=== PATIENT | female | born 1940 | race Caucasian/White ===

== ENCOUNTER 2018-02-21 22:02 | Emergency (ER) | payer OTHER ==
--- NOTE | 2018-02-21 23:57 | ER ---
Nurse's Notes [facility] Name: Arlen Veliz Age: 77 yrs Sex: Female : 1940 Arrival Date: 02/21/2018 Time: 22:06 Bed 7 Private MD: Quang Stephens H Diagnosis: Fracture distal right fibula. Contusion head. S/P Fall Presentation: 02/21 22:18 Presenting complaint: Patient states: Pt reports around 2100 she tripped over some ea boots when she got home from work and hit the outer side of her right ankle, pt reports when she got up she hit her head on a cabinet, reports no LOC. Transition of care: patient was not received from another setting of care. Onset of symptoms was February 21, 2018. Risk Assessment: Do you want to hurt yourself or someone else? Patient reports no desire to harm self or others. Initial Sepsis Screen: Does the patient meet any 2 criteria? No. Patient's initial sepsis screen is negative. Does the patient have a suspected source of infection? No. Patient's initial sepsis screen is negative. Care prior to arrival: pt reports icing her ankle. 22:18 Method Of Arrival: Wheelchair ea 22:18 Acuity: SUSANA 3 ea Triage Assessment: 22:23 General: Appears uncomfortable, Behavior is calm, cooperative, appropriate for age. ea Pain: Complains of pain in right ankle Pain currently is 7 out of 10 on a pain scale. Quality of pain is described as aching. Neuro: Level of Consciousness is awake, alert, obeys commands, Oriented to person, place, time, situation. Cardiovascular: Patient's skin is warm and dry. Respiratory: Airway is patent Respiratory effort is even, unlabored, Respiratory pattern is regular, symmetrical. Derm: Skin is pink, warm \T\ dry. Musculoskeletal: Swelling present in right ankle Reports pain in right ankle. Injury Description: Bruise sustained to right ankle bruising and swelling to right ankle. Historical: - Allergies: 22:29 PENICILLINS; ea - Home Meds: 22:29 carvedilol 6.25 mg oral tab 1 tab 2 times per day [Active]; aspirin 81 mg Oral chew 1 ea tab once daily [Active]; Vitamin D Oral [Active]; Vitamin B-12 Oral [Active]; - PMHx: 22:29 COLON CA; ea - PSHx: 22:29 Tonsillectomy; CATARACTS; COLON RESECTION; ea - Immunization history:: Adult Immunizations up to date. - Social history:: Smoking status: Patient/guardian denies using tobacco. - Ebola Screening: : No symptoms or risks identified at this time. Screenin:23 Abuse screen: Denies threats or abuse. Nutritional screening: No deficits noted. ea Tuberculosis screening: No symptoms or risk factors identified. Fall Risk None identified. Assessment: 22:34 Reassessment: see triage assessment. ea 23:25 Reassessment: Patient and/or family updated on plan of care and expected duration. Pain ea level reassessed. Patient is alert, oriented x 3, equal unlabored respirations, skin warm/dry/pink. Provider at bedside updating pt on plan of care. 02/22 00:05 Reassessment: Patient and/or family updated on plan of care and expected duration. Pain ea level reassessed. Patient is alert, oriented x 3, equal unlabored respirations, skin warm/dry/pink. Discharge instruction given to patient, verbalized the understanding of instruction. Vital Signs: 02/21 22:22 BP 215 / 90; Pulse 67; Resp 16; Temp 97.4; Pulse Ox 97% ; Weight 70.76 kg; Height 5 ft. ea 6 in. (167.64 cm); Pain 7/10; 22:35 BP 186 / 90; Pulse 66; Resp 16; Pulse Ox 99% on R/A; ea 22:40 BP 166 / 79; Pulse 62; Resp 18; Pulse Ox 98% ; ea 23:55 BP 180 / 78; Pulse 60; Resp 18; Pulse Ox 99% on R/A; ea 22:22 Body Mass Index 25.18 (70.76 kg, 167.64 cm) ea ED Course: 22:06 Patient arrived in ED. es 22:06 Quang Stephens MD is Private Physician. es 22:10 Oliva Allen, ROMEO is Primary Nurse. ea 22:21 Triage completed. ea 22:23 Jerrell Ferrer MD is Attending Physician. pkl 22:23 Patient has correct armband on for positive identification. Bed in low position. Call ea light in reach. Side rails up X 1. 22:23 Arm band placed on right wrist. Patient placed in an exam room, on a stretcher, on ea pulse oximetry. 23:[address] via wheelchair. kw1 23:21 CT Head Brain wo Cont In Process Unspecified. EDMS 23:22 CT completed. Patient tolerated procedure well. Patient moved back from CT. kw1 23:23 X-ray completed. Portable x-ray completed in exam room. Patient tolerated procedure sg4 well. 23:30 Ankle Right 3 View XRAY In Process Unspecified. EDMS 23:48 Orthoglass splint: Posterior short lleg splint applied on right leg. ag4 02/22 00:04 No provider procedures requiring assistance completed. Patient did not have IV access ea during this emergency room visit. Administered Medications: 00:02 Drug: UltRAM 50 mg Route: PO; ea 00:04 Follow up: Response: Medication administered at discharge. ea Outcome: 02/21 23:57 Discharge ordered by . zandra 02/22 00:06 Condition: improved ea Discharge instructions given to patient, Instructed on discharge instructions, follow up and referral plans. medication usage, Demonstrated understanding of instructions, follow-up care, medications, Prescriptions given X 1. 00:07 Discharged to home via wheelchair, with friend. ea 00:08 Patient left the ED. ea Signatures: Dispatcher [employer] Jerrell Connolly MD MD pkl Salyer, Edna es Antunez, Elena, RN RN Mis Waldron kw1 Nikia Hercules sg4 Emory Virgen ag4 Corrections: (The following items were deleted from the chart) 02/21 23:32 23:14 Reassessment: Patient and/or family updated on plan of care and expected ea duration. Pain level reassessed. Patient is alert, oriented x 3, equal unlabored respirations, skin warm/dry/pink. ea
--- NOTE | 2018-02-21 23:57 | EDPHYS ---
Physician Documentation [facility] Name: Arlen Veliz Age: 77 yrs Sex: Female : 1940 Arrival Date: 02/21/2018 Time: 22:06 Bed 7 Private MD: Quang Stephens H ED Physician Jerrell Ferrer HPI: 02/21 23:36 This 77 yrs old Female presents to ER via Wheelchair with complaints of Ankle pkl Injury. 23:37 Details of fall: The patient fell from an upright position, while walking. Onset: The pkl symptoms/episode began/occurred just prior to arrival. Associated injuries: The patient sustained injury to the head, contusion, right ankle, painful injury, swelling. Historical: - Allergies: 22:29 PENICILLINS; ea - Home Meds: 22:29 carvedilol 6.25 mg oral tab 1 tab 2 times per day [Active]; aspirin 81 mg Oral chew 1 ea tab once daily [Active]; Vitamin D Oral [Active]; Vitamin B-12 Oral [Active]; - PMHx: 22:29 COLON CA; ea - PSHx: 22:29 Tonsillectomy; CATARACTS; COLON RESECTION; ea - Immunization history:: Adult Immunizations up to date. - Social history:: Smoking status: Patient/guardian denies using tobacco. - Ebola Screening: : No symptoms or risks identified at this time. ROS: 23:37 Eyes: Negative for injury, pain, redness, and discharge, ENT: Negative for injury, pkl pain, and discharge, Neck: Negative for injury, pain, and swelling, Cardiovascular: Negative for chest pain, palpitations, and edema, Respiratory: Negative for shortness of breath, cough, wheezing, and pleuritic chest pain, Abdomen/GI: Negative for abdominal pain, nausea, vomiting, diarrhea, and constipation, Back: Negative for injury and pain, : Negative for injury, bleeding, discharge, and swelling, Skin: Negative for injury, rash, and discoloration, Neuro: Negative for headache, weakness, numbness, tingling, and seizure. 23:37 MS/extremity: Positive for pain, swelling, tenderness, of the right ankle. Exam: 23:37 Head/Face: Normocephalic, atraumatic. Eyes: Pupils equal round and reactive to light, pkl extra-ocular motions intact. Lids and lashes normal. Conjunctiva and sclera are non-icteric and not injected. Cornea within normal limits. Periorbital areas with no swelling, redness, or edema. ENT: Nares patent. No nasal discharge, no septal abnormalities noted. Tympanic membranes are normal and external auditory canals are clear. Oropharynx with no redness, swelling, or masses, exudates, or evidence of obstruction, uvula midline. Mucous membranes moist. Neck: Trachea midline, no thyromegaly or masses palpated, and no cervical lymphadenopathy. Supple, full range of motion without nuchal rigidity, or vertebral point tenderness. No Meningismus. Chest/axilla: Normal chest wall appearance and motion. Nontender with no deformity. No lesions are appreciated. Cardiovascular: Regular rate and rhythm with a normal S1 and S2. No gallops, murmurs, or rubs. Normal PMI, no JVD. No pulse deficits. Respiratory: Lungs have equal breath sounds bilaterally, clear to auscultation and percussion. No rales, rhonchi or wheezes noted. No increased work of breathing, no retractions or nasal flaring. Abdomen/GI: Soft, non-tender, with normal bowel sounds. No distension or tympany. No guarding or rebound. No evidence of tenderness throughout. Back: No spinal tenderness. No costovertebral tenderness. Full range of motion. Skin: Warm, dry with normal turgor. Normal color with no rashes, no lesions, and no evidence of cellulitis. Neuro: Awake and alert, GCS 15, oriented to person, place, time, and situation. Cranial nerves II-XII grossly intact. Motor strength 5/5 in all extremities. Sensory grossly intact. Cerebellar exam normal. Normal gait. 23:37 Musculoskeletal/extremity: Extremities: grossly normal except: noted in the right ankle: pain, swelling, tenderness. Vital Signs: 22:22 BP 215 / 90; Pulse 67; Resp 16; Temp 97.4; Pulse Ox 97% ; Weight 70.76 kg; Height 5 ft. ea 6 in. (167.64 cm); Pain 7/10; 22:35 BP 186 / 90; Pulse 66; Resp 16; Pulse Ox 99% on R/A; ea 22:40 BP 166 / 79; Pulse 62; Resp 18; Pulse Ox 98% ; ea 23:55 BP 180 / 78; Pulse 60; Resp 18; Pulse Ox 99% on R/A; ea 22:22 Body Mass Index 25.18 (70.76 kg, 167.64 cm) ea MDM: 22:23 Patient medically screened. pkl 23:51 Data reviewed: vital signs, nurses notes, radiologic studies, CT scan, plain films. ED pkl course: Discussed X'rays and CT Scan results with patient. Advised to use walker and follow up with her Orthopedist in [place] in 2 to 3 days. Patient understood instructions. 02/21 22:29 Order name: CT Head Brain wo Cont pkl 02/21 22:29 Order name: Ankle Right 3 View XRAY pkl 02/21 23:31 Order name: Splint Leg: Short Leg; Complete Time: 23:46 pkl Administered Medications: 02/22 00:02 Drug: UltRAM 50 mg Route: PO; ea 00:04 Follow up: Response: Medication administered at discharge. ea Disposition: 02/21/18 23:57 Discharged to Home. Impression: Fracture distal right fibula. Contusion head. S/P Fall. - Condition is Stable. - Prescriptions for Ultram 50 mg Oral Tablet - take 1 tablet by ORAL route every 8 hours As needed; 30 tablet. - Medication Reconciliation Form, Thank You Letter, Antibiotic Education, Prescription Opioid Use form. - Follow up: Private Physician; When: 2 - 3 days; Reason: Re-evaluation by your physician. - Problem is new. - Symptoms have improved. Signatures: Dispatcher [employer] EDMS Jerrell Ferrer MD MD pkl Antunez, Elena, RN RN oskar Corrections: (The following items were deleted from the chart) 00:08 02/21 23:57 02/21/2018 23:57 Discharged to Home. Impression: Fracture distal right ea fibula. Contusion head. S/P Fall. Condition is Stable. Forms are Medication Reconciliation Form, Thank You Letter, Antibiotic Education, Prescription Opioid Use. Follow up: Private Physician; When: 2 - 3 days; Reason: Re-evaluation by your physician. Problem is new. Symptoms have improved. pkl
[2018-02-22] MEDS ORDERED: TRAMADOL HCL 50 MG TAB ONE (00:09)
--- NOTE | 2018-02-22 11:35 | RAD REPORT ---
EXAM DESCRIPTION: RAD - Ankle Right 3 View - 02/21/2018 11:30 pm CLINICAL HISTORY: fall;Pain COMPARISON: No comparisons FINDINGS: Prominent lateral soft tissue swelling is present. Subtle lucency in the very distal fibul a may represent a minimal avulsion fracture.
--- NOTE | 2018-02-22 11:40 | RAD REPORT ---
EXAM DESCRIPTION: CT - Head Brain Wo Cont - 02/22/2018 5:56 am CLINICAL HISTORY: fall Head injury COMPARISON: No comparisons TECHNIQUE: All CT scans are performed using dose optimization technique as appropriate and may inclu de automated exposure control or mA/KV adjustment according to patient size. FINDINGS: No intracranial hemorrhage, hydrocephalus or extra-axial fluid collection.No areas of brai n edema or evidence of midline shift. The paranasal sinuses and mastoids are clear. The calvarium is intact. IMPRESSION: No acute intracranial abnormality.
== END 2018-02-22 00:08 | disposition home or self-care (01) ==
LOC: ER 22:02
PROC: 2W3QX1Z Immobilization of Right Lower Leg using Splint (ICD-10-PCS; principal; 2018-02-22)
DX: S82.831A Other fracture of upper and lower end of right fibula, initial encounter for closed fracture (principal); S00.93XA Contusion of unspecified part of head, initial encounter; W01.10XA Fall on same level from slipping, tripping and stumbling with subsequent striking against unspecified object, initial encounter; Y92.009 Unspecified place in unspecified non-institutional (private) residence as the place of occurrence of the external cause
CPT/HCPCS: 70450; 99284

== ENCOUNTER 2018-05-02 12:42 | Emergency (ER) | payer OTHER ==
[2018-05-02 13:55] LABS: Absolute Lymphocytes (CBC) 1.2 K/uL (0.7-4.9); Absolute Monocytes 0.7 K/uL (0.1-1.3); Absolute Neutrophil 4.5 K/uL (1.8-8.0); Eosinophils % 1.7 % (0-4.4); Hematocrit 43.5 % (36.0-45.0); Lymphocytes % 18.6 % (15.3-44.8); MPV 9.9 fL (7.6-11.3); Monocytes % 9.9 % (3.3-12.3); RBC Red Blood Cell Count 4.82 M/uL (3.86-4.86)
[2018-05-02 14:08] LABS: ALT/SGPT 17 U/L (12-78); AST/SGOT 15 U/L (15-37); Albumin 3.9 g/dL (3.4-5.0); Alkaline Phosphatase 50 U/L (45-117); BUN Blood Urea Nitrogen 11 mg/dL (7-18); Bicarbonate 28 mmol/L (21-32); Bilirubin Total 0.7 mg/dL (0.2-1.0); Glucose Level 126 mg/dL (74-106); Potassium 4.1 mmol/L (3.5-5.1); Sodium Level 139 mmol/L (136-145); Troponin (Emerg Dept Use Only) < 0.02 ng/mL (0.0-0.045)
--- NOTE | 2018-05-02 14:50 | EDPHYS ---
Physician Documentation [facility] Name: Arlen Veliz Age: 77 yrs Sex: Female : 1940 Arrival Date: 05/02/2018 Time: 12:45 Bed 23 Private MD: ED Physician Huan Narvaez HPI: 05/02 13:18 This 77 yrs old Female presents to ER via Ambulatory with complaints of High jmm Blood Pressure. 13:18 The patient has elevated blood pressure and discovered this at home. Onset: The jmm symptoms/episode began/occurred gradually, today. Associated signs and symptoms: Pertinent positives: headache, Pertinent negatives: chest pain, lightheadedness, visual changes, vomiting, weakness. This is a 77 year old female with a history of htn, colon cancer that presents to the ED with elevated blood pressure and headache beginning earlier today. Denies weakness, denies chest pain, denies urinary symptoms. Patient states having similar headaches with elevated blood pressure. Patient states taking her carvedilol along with another half dose this morning with no relief. Systolic was 224 at home. . Historical: - Allergies: 12:54 PENICILLINS; sg - Home Meds: 12:57 carvedilol 6.25 mg Oral tab 1 tab 2 times per day [Active]; sertraline 25 mg oral tab 1 la1 tab once daily [Active]; pravastatin 40 mg oral tab 1 tab once daily [Active]; Vitamin D Oral [Active]; - PMHx: 12:54 COLON CA; sg - PSHx: 12:54 Tonsillectomy; CATARACTS; COLON RESECTION; sg - Immunization history:: Adult Immunizations up to date. - Social history:: Smoking status: Patient/guardian denies using tobacco. - Ebola Screening: : Patient negative for fever greater than or equal to 101.5 degrees Fahrenheit, and additional compatible Ebola Virus Disease symptoms Patient denies exposure to infectious person Patient denies travel to an Ebola-affected area in the 21 days before illness onset No symptoms or risks identified at this time. ROS: 13:18 Constitutional: Negative for fever, chills, and weight loss, Cardiovascular: Negative jmm for chest pain, palpitations, and edema, Respiratory: Negative for shortness of breath, cough, wheezing, and pleuritic chest pain. 13:18 Neuro: Positive for headache, Negative for weakness. 13:18 All other systems are negative. Exam: 13:18 Constitutional: This is a well developed, well nourished patient who is awake, alert, jmm and in no acute distress. Head/Face: atraumatic. Eyes: EOMI, no conjunctival erythema appreciated ENT: Moist Mucus Membranes Neck: Trachea midline, Supple Chest/axilla: Normal chest wall appearance and motion. Cardiovascular: Regular rate and rhythm. No edema appreciated Respiratory: Normal respirations, no respiratory distress appreciated Abdomen/GI: Non distended, soft Back: Normal ROM Skin: General appearance color normal MS/ Extremity: Moves all extremities, no obvious deformities appreciated, no edema noted to the lower extremities 13:18 Neuro: Orientation: is normal, Mentation: is normal, Memory: is normal, Cerebellar function: normal finger to nose testing, Motor: is normal. 13:18 Psych: Behavior/mood is pleasant, cooperative. Vital Signs: 12:50 BP 204 / 108; Pulse 60; Resp 18; Temp 97.8; Pulse Ox 96% ; Weight 63.5 kg; Height 5 ft. la1 6 in. (167.64 cm); 13:09 BP 182 / 89; la1 15:06 BP 190 / 80; Pulse 61; Resp 18; Pulse Ox 98% on R/A; la1 12:50 Body Mass Index 22.60 (63.50 kg, 167.64 cm) la1 MDM: 13:08 Patient medically screened. [facility] 14:46 Data reviewed: vital signs, nurses notes. Counseling: I had a detailed discussion with [facility] the patient and/or guardian regarding: the historical points, exam findings, and any diagnostic results supporting the discharge/admit diagnosis, lab results, the need for outpatient follow up, to return to the emergency department if symptoms worsen or persist or if there are any questions or concerns that arise at home. ED course: Patient has no focal neuro deficits. Patient is alert and non toxic in appearance. Labs unremarkable. Patient given return precautions. Patient understood and agrees with the plan of care. . 05/02 13:09 Order name: CBC with Diff; Complete Time: 14:17 [facility] 05/02 13:09 Order name: CMP; Complete Time: 14:17 [facility] 05/02 13:09 Order name: Urine Dipstick-Ancillary (obtain specimen); Complete Time: 14:54 [facility] 05/02 13:09 Order name: Troponin (emerg Dept Use Only); Complete Time: 14:17 [facility] 05/02 14:38 Order name: Urine Dipstick--Ancillary (enter results) eb 05/02 14:54 Order name: Urine Culture la1 05/02 13:09 Order name: EKG - Nurse/Tech; Complete Time: 13:51 [facility] 05/02 13:09 Order name: Saline Lock; Complete Time: 13:51 [facility] Administered Medications: No medications were administered Disposition: 05/03 07:00 Co-signature as Attending Physician, Huan Narvaez MD. rn Disposition: 05/02/18 14:49 Discharged to Home. Impression: Elevated Blood Pressure, Urinary tract infection, site not specified. - Condition is Stable. - Discharge Instructions: Hypertension, Urinary Tract Infection, Adult. - Prescriptions for Macrobid 100 mg Oral Capsule - take 1 capsule by ORAL route every 12 hours for 7 days; 14 capsule. - Medication Reconciliation Form, Thank You Letter, Antibiotic Education, Prescription Opioid Use form. - Follow up: Private Physician; When: 2 - 3 days; Reason: Recheck today's complaints, Continuance of care, Re-evaluation by your physician. Signatures: Dispatcher [employer] EDDwain Garcia RN RN sg Mickail, Joel, PA PA [facility] Huan Narvaez MD MD rn Attema, Lee, RN RN la1 Corrections: (The following items were deleted from the chart) 05/02 15:07 14:49 05/02/2018 14:49 Discharged to Home. Impression: Elevated Blood Pressure; Urinary la1 tract infection, site not specified. Condition is Stable. Forms are Medication Reconciliation Form, Thank You Letter, Antibiotic Education, Prescription Opioid Use. Follow up: Private Physician; When: 2 - 3 days; Reason: Recheck today's complaints, Continuance of care, Re-evaluation by your physician. [facility]
--- NOTE | 2018-05-02 14:50 | ER ---
Nurse's Notes [facility] Name: Arlen Veliz Age: 77 yrs Sex: Female : 1940 Arrival Date: 05/02/2018 Time: 12:45 Bed 23 Private MD: Diagnosis: Elevated Blood Pressure;Urinary tract infection, site not specified Presentation: 05/02 12:53 Presenting complaint: Patient states: Headache starting this morning, described as sg pounding and throbbing, reports worrying a lot lately because of work situations...etc. Pressures at home have been ranging from 180's/90's to 200's/100's. Transition of care: patient was not received from another setting of care. Onset of symptoms was May 02, 2018. Risk Assessment: Do you want to hurt yourself or someone else? Patient reports no desire to harm self or others. Initial Sepsis Screen: Does the patient meet any 2 criteria? No. Patient's initial sepsis screen is negative. Does the patient have a suspected source of infection? No. Patient's initial sepsis screen is negative. Care prior to arrival: None. 12:53 Method Of Arrival: Ambulatory sg 12:53 Acuity: SUSANA 3 sg Historical: - Allergies: 12:54 PENICILLINS; sg - Home Meds: 12:57 carvedilol 6.25 mg Oral tab 1 tab 2 times per day [Active]; sertraline 25 mg oral tab 1 la1 tab once daily [Active]; pravastatin 40 mg oral tab 1 tab once daily [Active]; Vitamin D Oral [Active]; - PMHx: 12:54 COLON CA; sg - PSHx: 12:54 Tonsillectomy; CATARACTS; COLON RESECTION; sg - Immunization history:: Adult Immunizations up to date. - Social history:: Smoking status: Patient/guardian denies using tobacco. - Ebola Screening: : Patient negative for fever greater than or equal to 101.5 degrees Fahrenheit, and additional compatible Ebola Virus Disease symptoms Patient denies exposure to infectious person Patient denies travel to an Ebola-affected area in the 21 days before illness onset No symptoms or risks identified at this time. Screenin:14 Abuse screen: Denies threats or abuse. Nutritional screening: No deficits noted. la1 Tuberculosis screening: No symptoms or risk factors identified. Fall Risk None identified. Assessment: 13:13 General: Appears in no apparent distress. Behavior is calm, cooperative. Pain: la1 Complains of pain in pt reports generalized headache. Neuro: Level of Consciousness is awake, alert, obeys commands, Oriented to person, place, time, situation, Solder Making Laborer are equal bilaterally Moves all extremities. Full function Gait is steady, Speech is normal, Facial symmetry appears normal, Pupils are PERRLA. Cardiovascular: Capillary refill < 3 seconds Patient's skin is warm and dry. Respiratory: Airway is patent Respiratory effort is even, unlabored, Respiratory pattern is regular, symmetrical, Breath sounds are clear bilaterally. GI: No signs and/or symptoms were reported involving the gastrointestinal system. : No signs and/or symptoms were reported regarding the genitourinary system. 15:07 Reassessment: Patient appears in no apparent distress at this time. No changes from la1 previously documented assessment. Patient and/or family updated on plan of care and expected duration. Pain level reassessed. Patient is alert, oriented x 3, equal unlabored respirations, skin warm/dry/pink. Vital Signs: 12:50 BP 204 / 108; Pulse 60; Resp 18; Temp 97.8; Pulse Ox 96% ; Weight 63.5 kg; Height 5 ft. la1 6 in. (167.64 cm); 13:09 BP 182 / 89; la1 15:06 BP 190 / 80; Pulse 61; Resp 18; Pulse Ox 98% on R/A; la1 12:50 Body Mass Index 22.60 (63.50 kg, 167.64 cm) la1 ED Course: 12:45 Patient arrived in ED. rg4 12:49 Madi Vicente, ROMEO is Primary Nurse. la1 12:52 Leonidas Arreguin PA is PHCP. jmm 12:52 Huan Narvaez MD is Attending Physician. jmm 12:54 Triage completed. sg 12:55 Arm band placed on. sg 13:14 Call light in reach. Side rails up X 1. la1 13:45 Missed attempt(s): 22 gauge in right antecubital area. lt1 13:45 Inserted saline lock: 20 gauge in left antecubital area, using aseptic technique. lt1 13:45 Initial lab(s) drawn, by me, sent to lab. EKG done. lt1 15:07 No provider procedures requiring assistance completed. IV discontinued, intact, la1 bleeding controlled, No redness/swelling at site. Pressure dressing applied. Administered Medications: No medications were administered Outcome: 14:49 Discharge ordered by . [place] 15: Discharged to home ambulatory. la1 15:07 Condition: stable 15:07 Discharge instructions given to patient, Instructed on discharge instructions, follow up and referral plans. medication usage, Demonstrated understanding of instructions, follow-up care, medications, Prescriptions given X 1. 15:07 Patient left the ED. la1 Signatures: Dwain Young, RN Leonidas Trujillo PA PA jmm Attema, Lee, RN RN la1 Viki Hercules 4 Olena Tejeda lt1
[2018-05-02 15:22] LABS: Urine Blood NEGATIVE (NEG); Urine Glucose NEGATIVE (NEG); Urine Protein NEGATIVE (NEG); Urine Specific Gravity 1.015 (1.005-1.030); Urine pH 7.5 (5.0-7.0)
--- NOTE | 2018-05-04 20:54 | EKG ---
Test Date: 2018-05-02 Test Time: 13:18:04 Coat Operator Insulator: LEONOR MEASUREMENT RESULTS: Intervals: Rate: 55 CA: 140 QRSD: 80 QT: 432 QTc: 413 [place]: P: 81 CA: 140 QRS: 36 T: 49 INTERPRETIVE STATEMENTS: Sinus bradycardia Cannot rule out Anterior infarct, age undetermined Abnormal ECG Compared to ECG 05/06/2011 10:29:36 No significant changes Electronically Signed On 05-04-18 20:48:34 DIAGNOSTIC TECHNICIAN by Paulie Herrera
== END 2018-05-02 15:07 | disposition home or self-care (01) ==
LOC: ER 12:42
DX: I10 Essential (primary) hypertension (principal); N39.0 Urinary tract infection, site not specified; Z88.0 Allergy status to penicillin; Z85.038 Personal history of other malignant neoplasm of large intestine
CPT/HCPCS: 36415; 80053; 81003; 84484; 85025; 87086; 87088; 93005; 99284

== ENCOUNTER 2020-03-10 07:35 | Day surgery (SDC) | payer OTHER ==
[2020-03-06 09:10] LABS: Absolute Lymphocytes (CBC) 1.1 K/uL (0.7-4.9); Basophils % 0.8 % (0-1.3); Lymphocytes % 18.8 % (15.3-44.8); MPV 9.2 fL (7.6-11.3); RBC Red Blood Cell Count 4.29 M/uL (3.86-4.86)
--- NOTE | 2020-03-06 09:44 | RAD REPORT ---
EXAM DESCRIPTION: RAD - Chest Pa And Lat (2 Views) - 03/06/2020 9:37 am CLINICAL HISTORY: preophemorrhoid and fissure surgery COMPARISON: April 2011 Two view chest TECHNIQUE: Frontal and lateral views of the chest were obtained. FINDINGS: The lungs are fibrotic as a baseline. No failure, infiltrate or mass lesions seen. No ervin r lymphadenopathy. Heart size is normal and central vasculature is within normal limits. No pleura l effusion or pneumothorax seen. No acute bony finding noted. No aortic abnormality. 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
[2020-03-07 08:59] LABS: Potassium 5.6 mmol/L (3.5-5.1)
--- OUTSIDE RECORDS SUMMARY | 2020-03-10 07:40 | XMS REPORT | Continuity of Care Document ---
:1940 Author Organization [facility] t Address [address] [place] [address] Dr. Castano [address] [place] [id number] Care Team Providers Name Role Phone PRASADLATASHAHARPER Primary Care Physician Unavailable SYSTEM, NOT IN Attending Clinician Unavailable Problems This patient has no known problems. Allergies, Adverse Reactions, Alerts This patient has no known allergies or adverse reactions. Medications This patient has no known medications. Procedures This patient has no known procedures. Encounters Start End Encounter Admission Attending Care Care Encounter Source Date/Time Date/Time Type Type Clinicians Facility Department ID 2019-10-05 Outpatient SYSTEM, [facility] [id number] 15:33:14 PROVIDER Reggie mims n Results This patient has no known results.
[2020-03-10] MEDS ORDERED: Ringers Lactate 1,000 ML IV ONE (08:47)
[2020-03-10] MEDS ORDERED: FENTANYL CITR 100 MCG/2 ML ONE (09:33)
[2020-03-10] MEDS ORDERED: propofoL 200 MG/20 ML VIAL IV ONE (09:33)
[2020-03-10] MEDS ORDERED: LIDOCAINE 1% MPF 5 ML VIAL ONE (09:33)
[2020-03-10] MEDS ORDERED: ONDANSETRON 4 MG/2 ML VIAL ONE (09:55)
[2020-03-10] MEDS ORDERED: KETOROLAC 30 MG/ML INJ ONE (09:55)
[2020-03-10] MEDS ORDERED: CIPROFLOXACIN 400mg IV 400 MG/200 ML BAG IV ONE (10:02)
[2020-03-10] MEDS: EPHEDRINE SULF 50 MG/ML VIAL ONE ×2 (10:07→10:11)
--- NOTE | 2020-03-10 10:53 | OP ---
Date of Procedure: 03/10/2020 Surgeon: Harry Doherty MD Red Lead Burner: None. Preoperative Diagnosis: Hemorrhoids, rectal pain and fissure. Postoperative Diagnosis: Hemorrhoids, rectal pain and fissure. Procedure: Exam under anesthesia, rigid proctoscopy, hemorrhoidectomy x2 and debridement of anal fis sure. Estimated Blood Loss: Minimal. Specimen: Hemorrhoids x2. Finding: As above. Anesthesia: General. Complications: None. Condition: The patient tolerated the procedure in stable condition and taken to Recovery in good gen eral condition. Description Of Procedure: The patient was brought into the OR and placed in supine position. Genera l anesthesia was begun. The patient was placed in lithotomy position. Prepped and draped in usual s terile fashion. Exam under anesthesia revealed 2 external hemorrhoids, one on the anterior minimal, one in the posterior midline, and then rigid proctoscopy revealed a fissure, which was in the anterio r portion of the anus. This was too far and completely excise safely. Therefore, we excised both th e hemorrhoids with the Harmonic Scalpel and we debrided the fissure and cauterized any bleeding and t hen rectal pack consisting of Gel-Foam, Surgicel, Vaseline gauze placed in the anal canal. Marcaine 0.5% was infiltrated locally for postop pain control. Sterile dressing was applied. Patient was deisi kened and taken to Recovery in good general condition. Discharge Note: The patient will go to Day Surgery and home when stable. Disposition: Home. Condition: Stable. Discharge Instructions: Resume home medications and diet. Activity as tolerated. No heavy lifting. High-fiber diet. Sitz baths. Metamucil as ordered. Colace 100 mg p.o. b.i.d., Procto-HC 2.5% to anus b.i.d. and p.r.n., Tylenol No. 3 one tablet p.o. q.4 p.r.n. pain. Follow up in my office in 2 w eeks, call for appointment. GRACIELA/VASU Voice ID: [id number] Report ID: [id number]
[2020-03-10] MEDS ORDERED: HYDROCODONE/APAP 7.5/325 MG TAB PO ONE (11:30)
[2020-03-10] MEDS ORDERED: HYDROCODONE/APAP 7.5/325 MG TAB ONE (11:40)
[2020-03-10 12:02] VITALS: BP 147/67; TEMP 97.3; O2SAT 96
== END 2020-03-10 11:50 | disposition home health service (06) ==
LOC: OR 07:35
PROVIDERS: ATTEND Surgery
PROC: 0D5Q8ZZ Destruction of Anus, Via Natural or Artificial Opening Endoscopic (ICD-10-PCS; 2020-03-10)
PROC: 06BY0ZC Excision of Hemorrhoidal Plexus, Open Approach (ICD-10-PCS; principal; 2020-03-10 09:15)
DX: K64.4 Residual hemorrhoidal skin tags (principal); K60.2 Anal fissure, unspecified; Z20.828 Contact with and (suspected) exposure to other viral communicable diseases; I10 Essential (primary) hypertension; K21.9 Gastro-esophageal reflux disease without esophagitis; F32.9 Major depressive disorder, single episode, unspecified; R06.83 Snoring; Z85.038 Personal history of other malignant neoplasm of large intestine
CPT/HCPCS: 93005; 85025; 80048; 36415 ×2; 84132; 88304 ×2; 71046; 46250; 46615; U0002; J2704; J3010; J7120; J2405; J0744

== ENCOUNTER 2021-03-14 07:59 | Day surgery (SDC) | payer OTHER ==
[2021-03-13 11:39] LABS: Absolute Lymphocytes (CBC) 1.1 K/uL (0.7-4.9); Basophils % 1.1 % (0-1.3); Hematocrit 39.3 % (36.0-45.0); Lymphocytes % 19.3 % (15.3-44.8); MPV 9.5 fL (7.6-11.3); RBC Red Blood Cell Count 4.38 M/uL (3.86-4.86)
[2021-03-13 11:54] LABS: Potassium 4.6 mmol/L (3.5-5.1)
--- NOTE | 2021-03-13 12:09 | RAD REPORT ---
EXAM DESCRIPTION: RAD - Chest Pa And Lat (2 Views) - 03/13/2021 12:03 pm CLINICAL HISTORY: PRE-OP COMPARISON: Chest Pa And Lat (2 Views) dated 03/06/2020; CHEST PA AND LAT 2 VIEW dated 05/06/2011 FINDINGS: Lines: None. Lungs: No evidence of edema or pneumonia. Emphysema. Apical scarring. Pleural: No significant pleural effusions or pneumothorax. Cardiac: The heart size is within normal limits. Bones: No acute fractures. Other: IMPRESSION: No acute cardiopulmonary disease.
--- NOTE | 2021-03-13 13:02 | EKG ---
Test Date: 2021-03-13 Test Time: 11:40:27 Sponsorship Manager: DO MEASUREMENT RESULTS: Intervals: Rate: 50 ID: [id number] QRSD: 76 QT: 472 QTc: 430 [place]: P: 79 ID: [id number] QRS: 56 T: 65 INTERPRETIVE STATEMENTS: Sinus bradycardia with premature atrial complexes Otherwise normal ECG Compared to ECG 03/06/2020 08:49:14 Atrial premature complex(es) now present Electronically Signed On 03-13-21 13:02:24 CAR ATTENDANT by Paulie Herrera
[2021-03-14] MEDS ORDERED: CEFAZOLIN/NS 1gm 1 GM/50 ML BAG ONE (08:19)
[2021-03-14] MEDS ORDERED: Ringers Lactate 1,000 ML IV ONE (08:19)
[2021-03-14] MEDS ORDERED: FENTANYL CITR 100 MCG/2 ML ONE ×3 (10:19→10:28)
[2021-03-14] MEDS ORDERED: ROCURONIUM 50 MG/5 ML VIAL IV ONE (10:20)
[2021-03-14] MEDS ORDERED: LIDOCAINE 2% MPF 5 ML VIAL ONE (10:23)
[2021-03-14] MEDS ORDERED: propofoL 200 MG/20 ML VIAL IV ONE (10:28)
[2021-03-14] MEDS ORDERED: LIDOCAINE 1% MPF 5 ML VIAL ONE (10:29)
[2021-03-14] MEDS ORDERED: BUPIVACAINE 0.5% Inj,MDV 50 mL VIAL ONE (10:38)
[2021-03-14] MEDS ORDERED: NS 0.9% VIAL 10 ML ONE (11:11)
[2021-03-14] MEDS ORDERED: EPHEDRINE SULF 50 MG/ML VIAL ONE (11:11)
[2021-03-14] MEDS ORDERED: KETOROLAC 30 MG/ML INJ ONE (11:14)
[2021-03-14] MEDS ORDERED: dexAMETHasone 10 MG/ML VIAL ONE (11:14)
[2021-03-14] MEDS ORDERED: ONDANSETRON 4 MG/2 ML VIAL ONE (11:19)
[2021-03-14] MEDS ORDERED: GLYCOPYRROLATE 0.2 MG/ML SYR ONE (11:19)
[2021-03-14] MEDS ORDERED: Mastisol Adhesive Liq ONE (11:37)
[2021-03-14] MEDS: HYDROMORPHONE HCL 1 MG/ML INJ ONE ×4 (12:02→12:24)
[2021-03-14 12:24] VITALS: O2SAT 98
[2021-03-14] MEDS ORDERED: HYDROCODONE/APAP 7.5/325 MG TAB ONE (12:59)
--- NOTE | 2021-03-14 13:20 | OP ---
Date of Procedure: 03/14/2021 Surgeon: Harry Doherty MD Skein Mercerizing Machine Operator: Armand Coffman, surgical assist. Preoperative Diagnosis: Left inguinal hernia. Postoperative Diagnosis: Direct left inguinal hernia. Estimated Blood Loss: Minimal. Specimen: None. Findings: Direct left inguinal hernia. Anesthesia: General. Complications: None. Disposition: The patient tolerated the procedure in stable condition and taken to Recovery in good g eneral condition. Procedure In Detail: The patient was brought to the OR and placed in supine position. General anest hesia begun. The patient was prepped and draped in usual sterile fashion. Marcaine 0.5% was infiltr ated locally and then 15-blade was used to make a 4 cm oblique incision between the left pubic tuberc le and the anterior iliac superior spine. Subcutaneous tissue divided. Yolanda's fascia identified a nd divided. Aponeurosis was identified and mobilized inferiorly to expose shelving edge, and then op ened through the internal ring. The ilioinguinal nerve identified, retracted out of the field of dis section with the round ligament and then direct inguinal hernia was seen medial to the epigastric ves sels, which was reduced back into the peritoneal cavity. The opening was closed with [id number] 2-0 Prolene suture during the conjoined tendon to the shelving edge, and then Marlex mesh plug was p laced in the internal ring secured the VersaTack stapler. Onlay mesh was placed on the inguinal floo r, secured medially to the pubic tubercle, superiorly to the conjoined tendon, inferior to the shelvi ng edge, laterally to each other. Then, the ilioinguinal nerve placed back in anatomical location wi th the round ligament and then aponeurosis closed with a 2-0 Prolene through chromic used to close th e Yolanda's fascia in a 4-0 Monocryl used to close skin. Sterile dressing applied. The patient was a wakened and taken to Recovery in good general condition. Discharge Note: The patient will go to Day Surgery and home when stable. Disposition: Home. Condition: Stable. Discharge Instructions: Resume home medications and diet. Activity as tolerated. No heavy lifting. Remove outer dressing in 2 days. Shower. Keep wound clean and dry. Keep Steri-Strips on at all t imes. Tylenol No. 3 one tablet p.o. q.4 p.r.n. pain. Follow up in my office 1 week. Call for appoi ntment. GRACIELA/VASU Voice ID: [id number] Report ID: [id number]
[2021-03-14 15:09] VITALS: BP 175/78; TEMP 97.1
== END 2021-03-14 15:07 | disposition home or self-care (01) ==
LOC: OR 07:59
PROVIDERS: ATTEND Surgery
PROC: 0YU60JZ Supplement Left Inguinal Region with Synthetic Substitute, Open Approach (ICD-10-PCS; principal; 2021-03-14 09:45)
DX: K40.90 Unilateral inguinal hernia, without obstruction or gangrene, not specified as recurrent (principal); Z20.822 Contact with and (suspected) exposure to COVID-19
CPT/HCPCS: 93005 ×2; 85025; 80048; 36415; 71046; 49505; U0003; J2704; J3010; J1100; J1170 ×2; J0690; J7120; J2405

== ENCOUNTER 2022-11-30 11:23 | Emergency (ER) | payer MEDICARE ==
--- OUTSIDE RECORDS SUMMARY | 2022-11-30 11:28 | XMS REPORT | Continuity of Care Document ---
:1940 Author Organization [facility] t Address [address] [place] [address] Care Team Providers Name Role Phone PIPER PRASAD Primary Care Physician Unavailable Vikram Butler Attending Clinician Unavailable AGNIESZKA ONTIVEROS Attending Clinician Unavailable SYSTEM, PROVIDER NOT IN Attending Clinician Unavailable Ghulam HUBBARD, Brent Hernadez Attending Clinician Payers Payer Name Policy Type Policy Number Effective Date Expiration Date Beny KHAN [id number] 00:00:00 [employer] [facility] [id number] 2021 MEDICARE 00:00:00 [facility] [id number] 2021 (MEDICARE 00:00:00 REPLACEMENT HMO) Problems Condition Condition Condition Status Onset Resolution Last Treating Co mments Source Name Details Category Date Date Treatment Clinician Date Chronic Chronic Disease Active Methodi pain of pain of 05 st right knee right knee 00:00: Ho spita 00 l Primary Primary Disease Active Methodi localized localized 1-05 st osteoarthr osteoarthr 00:00: Ho spita osis of osis of 00 l right right lower leg lower leg [id number] 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 - [facility] , single [facility] [id number] Hives of Problem Comm on unknown Spirit origin - [facility] [id number] Osteoporos Problem Com mon is, Spirit unspecifie - [facility]I d [facility] osteoporos [facility] is type, Medical unspecifie Center d pathologic al fracture presence [id number] Leaky 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 - [facility] [id number] Constipati Problem Com mon on, Spirit unspecifie - CHI d St constipati [facility] on type Medical Center [id number] Essential Problem Comm on (primary) Spirit hypertensi - [facility] on [facility] [id number] Bilateral Problem Comm on hearing [facility] loss, - [facility] loss type [facility] [id number] Vitamin D Problem Comm on deficiency Spirit - [facility] [id number] History of Problem Co mmon colon Spirit cancer in - [facility] adulthood [facility] [id number] GERD Problem Common without Spirit esophagiti - [facility]I s [facility] [id number] Primary Problem Common insomnia [facility] - [facility] [id number] LAINE Problem Common (generaliz Spirit ed anxiety - [facility]I disorder) [facility] [id number] Mixed Problem Common hyperlipid Spirit emia - [facility] [id number] 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 - [facility] disease [facility] [id number] Osteoarthr Problem C ommon [id number] itis of [facility] Allergies, Adverse Reactions, Alerts Allergy Allergy Status Severity Reaction(s) Onset Inactive Treating Comm ents Source Name Type Date Date Clinician Penicill Propensi Active Unknown Mouth [facility] 00:[facility]: outh reaction 00 numbness s Penicill Propensi Active Rash Mouth Method i ins ty to 2-[address] adverse 00:00: Hospita reaction 00 l s to drug Social History Social Habit Start Date Stop Date Quantity Comments Source History of Tobacco [facility] - Use [facility] Gender identity [facility] Sexual orientation [facility] Exposure to Not sure [facility] SARS-CoV-2 (event) Tobacco use and 2021-07-09 2021-07-09 Smokeless [facility] exposure 00:00:00 00:00:00 tobacco non-user Alcohol intake 2021-07-09 2021-07-09 Ex-drinker [facility] 00:00:00 00:00:00 (finding) Sex Assigned At [birth year] [facility] Smoking Status Start Date Stop Date Source Tobacco smoking consumption Meth odist [facility] unknown Never Smoker [facility] Medications Ordered Filled Start Stop Current Ordering Indication Dosage Frequency Signature Comments Components Source Medication Medication Date Date Medication? Clinician (SIG) Name Name pravastatin Yes 40mg 1 tablet Me thodi (PRAVACHOL) 04 ([address] 40 mg 10:07: total). Hospita tablet 12 l losartan 2021-04 Yes 50mg QD Take 1 Methodi (COZAAR) 50 2-06 tablet (50 st MG tablet 00:00: mg total) Hos brian 00 by mouth l daily. carvediloL 2021-04 Yes TAKE 1 Metho di (COREG) 2-[address] 6.25 MG 00:00: MOUTH Hospita tablet 00 TWICE A l DAY WITH FOOD FOR 90 DAYS sertraline 2021-04 Yes 50mg QD Take 1 Metho di (ZOLOFT) 50 2-06 tablet (50 st MG tablet 00:00: mg total) Hos brian 00 by mouth l daily. pantoprazol 2021-04 Yes 40mg QD Take 1 Meth lynne e 2-06 tablet (40 st (PROTONIX) 00:00: mg total) Ho spita 40 MG EC 00 by mouth l tablet daily. Sulfamethox Sulfamethox 2021- No 1{table BID Sulfametho azole-Trime azole-Trime 8-10 08-15 t} xazole-Tri thoprim thoprim 00:00: 00:00 methoprim 800-160 MG 800-160 MG 00 :00 800-160 MG triamcinolo 2021- No [id number] 40mg UT ne 07-09 9100 [facility] acetonide 20:33: 20:33 (Kenalog-40 00 :00 ) injection 40 mg bupivacaine 2021- No [id number] 1mL UT PF 07-09 Health (Marcaine) 20:33: 20:33 0.5 % 00 :00 injection 1 mL lidocaine 2021- No [id number] 1mL UT (Xylocaine) 07-09 Health 1 % 20:33: 20:33 injection 1 00 :00 mL lidocaine 2021- No [id number] 1mL 1 mL, UT (Xylocaine) 07-09 Injection, H ealth 1 % 20:33: 20:33 Once PRN injection 1 00 :00 Procedure, mL Starting on Fri07/09/21 at 1533, For 1 dose bupivacaine 2021- No [id number] 1mL 1 mL, UT PF 07-09 Injection, [facility] (Marcaine) 20:33: 20:33 Once PRN 0.5 % 00 :00 Procedure, injection 1 Starting mL on Fri07/09/21 at 1533, For 1 dose triamcinolo 2021- No [id number] 40mg 40 mg, UT ne 07-09 Intra-inocente Health acetonide 20:33: 20:33 cular, (Kenalog-40 00 :00 Once PRN ) injection Procedure, 40 mg Starting on Fri07/09/21 at 1533, For 1 dose pravastatin Yes 1{tbl} 1 tablet. UT (Pravachol) 07-09 Health 40 MG 11:37: tablet 54 carvedilol Yes Q12H every 12 UT (Coreg) 07-09 (twelve) Health 6.25 MG 11:37: hours. tablet 54 pantoprazol Yes 1{tbl} 1 tablet. UT e 07-09 Health (ProtoNix) 11:37: 40 MG EC 54 tablet Zinc 50 MG Yes 1{tbl} 1 tablet. UT tablet 07-09 Health 11:37: 54 aspirin 81 Yes 81mg Chew 81 UT MG chewable 07-09 mg. Health tablet 11:37: 54 Diclofenac Yes [id number] Q.5D Apply UT Sodium 07-09 topically [facility] (Voltaren) 00:00: 2 (two) 1 % 00 times a external day. gel meloxicam 2022- No [id number] 15mg QD Take 1 UT (Mobic) 15 07-09 tablet (15 He alth MG tablet 00:00: 04:59 mg total) 00 :00 by mouth 1 (one) time each day. Take daily for the next 3 weeks then after this as needed. meloxicam 2021-0 2022- No 15mg Take 1 Metho di (MOBIC) 15 - 04-05 tablet (15 st mg tablet 00:00: 04:59 mg total) Ho spita 00 :00 by mouth. l Mara Mojicaalog 2017-0 No 40mg Common (Triamcinol (Triamcinol 3-02 S pirit one) one) 00:00: - [facility]I 00 [facility] Kenalog Kenalog 2018-0 No 40mg Common (Triamcinol (Triamcinol 3-02 S pirit one) one) 00:00: - CHI 00 [facility] Kenalog 2018-0 No 40mg Common (Triamcinol (Triamcinol 3-02 S pirit one) one) 00:00: - [facility] 00 [facility] No 40mg Common (Triamcinol (Triamcinol 3-02 S pirit one) one) 00:00: [facility]0 No 40mg Common (Triamcinol (Triamcinol 3-02 S pirit one) one) 00:00: - [facility] Ken[facility] 2018-0 No 40mg Common (Triamcinol (Triamcinol 3-02 S pirit one) one) 00:00: - CHI 00 [facility] Kenalog Kenalog 2018-0 No 40mg Common (Triamcinol (Triamcinol 3-02 S pirit one) one) 00:00: - [facility] Ken[facility] 2018-0 No 40mg Common (Triamcinol (Triamcinol 3-02 S pirit one) one) 00:00: - CHI 00 [facility] Kenalog Kenalog 2018-0 No 40mg Common (Triamcinol (Triamcinol 3-02 S pirit one) one) 00:00: - CHI 00 [facility] Kenalog Kenalog 2018-0 No 40mg Common (Triamcinol (Triamcinol 3-02 S pirit one) one) 00:00: - CHI 00 [facility] Mara Mojicaalog 2018-0 No 40mg Common (Triamcinol (Triamcinol 3-02 S pirit one) one) 00:00: - CHI 00 [facility] Mara Mojicaalog 2018-0 No 40mg Common (Triamcinol (Triamcinol 3-02 S pirit one) one) 00:00: - [facility]I 00 [facility] sertraline 2015- Yes 25mg Take 1 Metho di (ZOLOFT) 25 1-09 tablet (25 st MG tablet 00:00: mg total) Hos brian 00 by mouth. l Miralax Miralax No Miralax Vitamin D3 Vitamin D3 No Vitamin D3 Carvedilol Carvedilol No 1{table BID Carvedilol 6.25 MG 6.25 MG t_with_ 6.25 MG food} Losartan Losartan No 1{table QD Losartan Potassium Potassium t} Potassium 50 MG 50 MG 50 MG Pravastatin Pravastatin No 1{table QD Pravastati Sodium 40 Sodium 40 t} n Sodium MG MG 40 MG Linzess Linzess No Linzess Stool Stool No Stool Softener Softener Softener Vitamin B12 Vitamin B12 No 1{table QD Vitamin 1000 MCG 1000 MCG t} B12 1000 MCG Magnesium Magnesium No 1{table QD Magnesium 250 MG 250 MG t_with_ 250 MG a_meal} Zinc 50 MG Zinc 50 MG No 1{table QD Zinc 50 MG t} Sertraline Sertraline No 1{table QD Sertraline HCl 50 MG HCl 50 MG t} HCl 50 MG Pantoprazol Pantoprazol No 1{table QD Pantoprazo e Sodium 40 e Sodium 40 t} le Sodium MG MG 40 MG traZODone traZODone No traZODone HCl HCl HCl Miralax Miralax No Miralax Vitamin D3 Vitamin D3 No Vitamin D3 Carvedilol Carvedilol No 1{table BID Carvedilol 6.25 MG 6.25 MG t_with_ 6.25 MG food} Losartan Losartan No 1{table QD Losartan Potassium Potassium t} Potassium 50 MG 50 MG 50 MG Pravastatin Pravastatin No 1{table QD Pravastati Sodium 40 Sodium 40 t} n Sodium MG MG 40 MG Linzess Linzess No Linzess Stool Stool No Stool Softener Softener Softener Vitamin B12 Vitamin B12 No 1{table QD Vitamin 1000 MCG 1000 MCG t} B12 1000 MCG Magnesium Magnesium No 1{table QD Magnesium 250 MG 250 MG t_with_ 250 MG a_meal} Zinc 50 MG Zinc 50 MG No 1{table QD Zinc 50 MG t} Sertraline Sertraline No 1{table QD Sertraline HCl 50 MG HCl 50 MG t} HCl 50 MG Pantoprazol Pantoprazol No 1{table QD Pantoprazo e Sodium 40 e Sodium 40 t} le Sodium MG MG 40 MG traZODone traZODone No traZODone HCl HCl HCl Miralax Miralax No Miralax Vitamin D3 Vitamin D3 No Vitamin D3 Carvedilol Carvedilol No 1{table BID Carvedilol 6.25 MG 6.25 MG t_with_ 6.25 MG food} Losartan Losartan No 1{table QD Losartan Potassium Potassium t} Potassium 50 MG 50 MG 50 MG Pravastatin Pravastatin No 1{table QD Pravastati Sodium 40 Sodium 40 t} n Sodium MG MG 40 MG Linzess Linzess No Linzess Stool Stool No Stool Softener Softener Softener Vitamin B12 Vitamin B12 No 1{table QD Vitamin 1000 MCG 1000 MCG t} B12 1000 MCG Magnesium Magnesium No 1{table QD Magnesium 250 MG 250 MG t_with_ 250 MG a_meal} Zinc 50 MG Zinc 50 MG No 1{table QD Zinc 50 MG t} Sertraline Sertraline No 1{table QD Sertraline HCl 50 MG HCl 50 MG t} HCl 50 MG Pantoprazol Pantoprazol No 1{table QD Pantoprazo e Sodium 40 e Sodium 40 t} le Sodium MG MG 40 MG traZODone traZODone No traZODone HCl HCl HCl Miralax Miralax No Miralax Vitamin D3 Vitamin D3 No Vitamin D3 Sertraline Sertraline No Sertraline HCl 50 MG HCl 50 MG HCl 50 MG Carvedilol Carvedilol No 1{table BID Carvedilol 6.25 MG 6.25 MG t_with_ 6.25 MG food} Zinc 50 MG Zinc 50 MG No 1{table QD Zinc 50 MG t} Pravastatin Pravastatin No 1{table QD Pravastati Sodium 40 Sodium 40 t} n Sodium MG MG 40 MG Linzess Linzess No Linzess Losartan Losartan No 1{table QD Losartan Potassium Potassium t} Potassium 50 MG 50 MG 50 MG traZODone traZODone No traZODone HCl HCl HCl Magnesium Magnesium No 1{table QD Magnesium 250 MG 250 MG t_with_ 250 MG a_meal} Pantoprazol Pantoprazol No Pantoprazo e Sodium 40 e Sodium 40 le Sodium MG MG 40 MG Pantoprazol Pantoprazol No 1{table QD Pantoprazo e Sodium 40 e Sodium 40 t} le Sodium MG MG 40 MG Pravastatin Pravastatin No Pravastati Sodium 40 Sodium 40 n Sodium MG MG 40 MG Stool Stool No Stool Softener Softener Softener Sertraline Sertraline No 1{table QD Sertraline HCl 50 MG HCl 50 MG t} HCl 50 MG Vitamin B12 Vitamin B12 No 1{table QD Vitamin 1000 MCG 1000 MCG t} B12 1000 MCG Miralax Miralax No Miralax Vitamin D3 Vitamin D3 No Vitamin D3 Sertraline Sertraline No Sertraline HCl 50 MG HCl 50 MG HCl 50 MG Carvedilol Carvedilol No 1{table BID Carvedilol 6.25 MG 6.25 MG t_with_ 6.25 MG food} Zinc 50 MG Zinc 50 MG No 1{table QD Zinc 50 MG t} Pravastatin Pravastatin No 1{table QD Pravastati Sodium 40 Sodium 40 t} n Sodium MG MG 40 MG Linzess Linzess No Linzess Losartan Losartan No 1{table QD Losartan Potassium Potassium t} Potassium 50 MG 50 MG 50 MG traZODone traZODone No traZODone HCl HCl HCl Magnesium Magnesium No 1{table QD Magnesium 250 MG 250 MG t_with_ 250 MG a_meal} Pantoprazol Pantoprazol No Pantoprazo e Sodium 40 e Sodium 40 le Sodium MG MG 40 MG Pantoprazol Pantoprazol No 1{table QD Pantoprazo e Sodium 40 e Sodium 40 t} le Sodium MG MG 40 MG Pravastatin Pravastatin No Pravastati Sodium 40 Sodium 40 n Sodium MG MG 40 MG Stool Stool No Stool Softener Softener Softener Sertraline Sertraline No 1{table QD Sertraline HCl 50 MG HCl 50 MG t} HCl 50 MG Vitamin B12 Vitamin B12 No 1{table QD Vitamin 1000 MCG 1000 MCG t} B12 1000 MCG Miralax Miralax No Miralax Vitamin D3 Vitamin D3 No Vitamin D3 Sertraline Sertraline No Sertraline HCl 50 MG HCl 50 MG HCl 50 MG Carvedilol Carvedilol No 1{table BID Carvedilol 6.25 MG 6.25 MG t_with_ 6.25 MG food} Zinc 50 MG Zinc 50 MG No 1{table QD Zinc 50 MG t} Pravastatin Pravastatin No 1{table QD Pravastati Sodium 40 Sodium 40 t} n Sodium MG MG 40 MG Linzess Linzess No Linzess Losartan Losartan No 1{table QD Losartan Potassium Potassium t} Potassium 50 MG 50 MG 50 MG traZODone traZODone No traZODone HCl HCl HCl Magnesium Magnesium No 1{table QD Magnesium 250 MG 250 MG t_with_ 250 MG a_meal} Pantoprazol Pantoprazol No Pantoprazo e Sodium 40 e Sodium 40 le Sodium MG MG 40 MG Pantoprazol Pantoprazol No 1{table QD Pantoprazo e Sodium 40 e Sodium 40 t} le Sodium MG MG 40 MG Pravastatin Pravastatin No Pravastati Sodium 40 Sodium 40 n Sodium MG MG 40 MG Stool Stool No Stool Softener Softener Softener Sertraline Sertraline No 1{table QD Sertraline HCl 50 MG HCl 50 MG t} HCl 50 MG Vitamin B12 Vitamin B12 No 1{table QD Vitamin 1000 MCG 1000 MCG t} B12 1000 MCG Pantoprazol Pantoprazol No Pantoprazo e Sodium 40 e Sodium 40 le Sodium MG MG 40 MG Pantoprazol Pantoprazol No 1{table QD Pantoprazo e Sodium 40 e Sodium 40 t} le Sodium MG MG 40 MG Pravastatin Pravastatin No 1{table QD Pravastati Sodium 40 Sodium 40 t} n Sodium MG MG 40 MG traZODone traZODone No traZODone HCl HCl HCl Vitamin D3 Vitamin D3 No Vitamin D3 Vitamin B12 Vitamin B12 No 1{table QD Vitamin 1000 MCG 1000 MCG t} B12 1000 MCG Losartan Losartan No 1{table QD Losartan Potassium Potassium t} Potassium 50 MG 50 MG 50 MG Linzess Linzess No Linzess Stool Stool No Stool Softener Softener Softener Sertraline Sertraline No Sertraline HCl 50 MG HCl 50 MG HCl 50 MG Magnesium Magnesium No 1{table QD Magnesium 250 MG 250 MG t_with_ 250 MG a_meal} Pravastatin Pravastatin No Pravastati Sodium 40 Sodium 40 n Sodium MG MG 40 MG Miralax Miralax No Miralax Sertraline Sertraline No 1{table QD Sertraline HCl 50 MG HCl 50 MG t} HCl 50 MG Carvedilol Carvedilol No 1{table BID Carvedilol 6.25 MG 6.25 MG t_with_ 6.25 MG food} Zinc 50 MG Zinc 50 MG No 1{table QD Zinc 50 MG t} Stool Stool No Stool Softener Softener Softener Miralax Miralax No Miralax Carvedilol Carvedilol No 1{table BID Carvedilol 6.25 MG 6.25 MG t_with_ 6.25 MG food} Pravastatin Pravastatin No Pravastati Sodium 40 Sodium 40 n Sodium MG MG 40 MG Magnesium Magnesium No 1{table QD Magnesium 250 MG 250 MG t_with_ 250 MG a_meal} Zinc 50 MG Zinc 50 MG No 1{table QD Zinc 50 MG t} Pantoprazol Pantoprazol No Pantoprazo e Sodium 40 e Sodium 40 le Sodium MG MG 40 MG Linzess Linzess No Linzess Losartan Losartan No 1{table QD Losartan Potassium Potassium t} Potassium 50 MG 50 MG 50 MG Sertraline Sertraline No Sertraline HCl 50 MG HCl 50 MG HCl 50 MG Pantoprazol Pantoprazol No 1{table QD Pantoprazo e Sodium 40 e Sodium 40 t} le Sodium MG MG 40 MG Vitamin D3 Vitamin D3 No Vitamin D3 Sertraline Sertraline No 1{table QD Sertraline HCl 50 MG HCl 50 MG t} HCl 50 MG traZODone traZODone No traZODone HCl HCl HCl Vitamin B12 Vitamin B12 No 1{table QD Vitamin 1000 MCG 1000 MCG t} B12 1000 MCG Pravastatin Pravastatin No 1{table QD Pravastati Sodium 40 Sodium 40 t} n Sodium MG MG 40 MG Stool Stool No Stool Softener Softener Softener Miralax Miralax No Miralax Carvedilol Carvedilol No 1{table BID Carvedilol 6.25 MG 6.25 MG t_with_ 6.25 MG food} Pravastatin Pravastatin No Pravastati Sodium 40 Sodium 40 n Sodium MG MG 40 MG Magnesium Magnesium No 1{table QD Magnesium 250 MG 250 MG t_with_ 250 MG a_meal} Zinc 50 MG Zinc 50 MG No 1{table QD Zinc 50 MG t} Pantoprazol Pantoprazol No Pantoprazo e Sodium 40 e Sodium 40 le Sodium MG MG 40 MG Linzess Linzess No Linzess Losartan Losartan No 1{table QD Losartan Potassium Potassium t} Potassium 50 MG 50 MG 50 MG Sertraline Sertraline No Sertraline HCl 50 MG HCl 50 MG HCl 50 MG Pantoprazol Pantoprazol No 1{table QD Pantoprazo e Sodium 40 e Sodium 40 t} le Sodium MG MG 40 MG Vitamin D3 Vitamin D3 No Vitamin D3 Sertraline Sertraline No 1{table QD Sertraline HCl 50 MG HCl 50 MG t} HCl 50 MG traZODone traZODone No traZODone HCl HCl HCl Vitamin B12 Vitamin B12 No 1{table QD Vitamin 1000 MCG 1000 MCG t} B12 1000 MCG Pravastatin Pravastatin No 1{table QD Pravastati Sodium 40 Sodium 40 t} n Sodium MG MG 40 MG Stool Stool No Stool Softener Softener Softener Miralax Miralax No Miralax Carvedilol Carvedilol No 1{table BID Carvedilol 6.25 MG 6.25 MG t_with_ 6.25 MG food} Pravastatin Pravastatin No Pravastati Sodium 40 Sodium 40 n Sodium MG MG 40 MG Magnesium Magnesium No 1{table QD Magnesium 250 MG 250 MG t_with_ 250 MG a_meal} Zinc 50 MG Zinc 50 MG No 1{table QD Zinc 50 MG t} Pantoprazol Pantoprazol No Pantoprazo e Sodium 40 e Sodium 40 le Sodium MG MG 40 MG Linzess Linzess No Linzess Losartan Losartan No 1{table QD Losartan Potassium Potassium t} Potassium 50 MG 50 MG 50 MG Sertraline Sertraline No Sertraline HCl 50 MG HCl 50 MG HCl 50 MG Pantoprazol Pantoprazol No 1{table QD Pantoprazo e Sodium 40 e Sodium 40 t} le Sodium MG MG 40 MG Vitamin D3 Vitamin D3 No Vitamin D3 Sertraline Sertraline No 1{table QD Sertraline HCl 50 MG HCl 50 MG t} HCl 50 MG traZODone traZODone No traZODone HCl HCl HCl Vitamin B12 Vitamin B12 No 1{table QD Vitamin 1000 MCG 1000 MCG t} B12 1000 MCG Pravastatin Pravastatin No 1{table QD Pravastati Sodium 40 Sodium 40 t} n Sodium MG MG 40 MG traZODone traZODone No traZODone HCl HCl HCl Sertraline Sertraline No Sertraline HCl 50 MG HCl 50 MG HCl 50 MG Linzess Linzess No Linzess Miralax Miralax No Miralax Pravastatin Pravastatin No Pravastati Sodium 40 Sodium 40 n Sodium MG MG 40 MG Vitamin D3 Vitamin D3 No Vitamin D3 Zinc 50 MG Zinc 50 MG No 1{table QD Zinc 50 MG t} Carvedilol Carvedilol No 1{table BID Carvedilol 6.25 MG 6.25 MG t_with_ 6.25 MG food} Sertraline Sertraline No 1{table QD Sertraline HCl 50 MG HCl 50 MG t} HCl 50 MG Stool Stool No Stool Softener Softener Softener Magnesium Magnesium No 1{table QD Magnesium 250 MG 250 MG t_with_ 250 MG a_meal} Pravastatin Pravastatin No 1{table QD Pravastati Sodium 40 Sodium 40 t} n Sodium MG MG 40 MG Losartan Losartan No 1{table QD Losartan Potassium Potassium t} Potassium 50 MG 50 MG 50 MG Vitamin B12 Vitamin B12 No 1{table QD Vitamin 1000 MCG 1000 MCG t} B12 1000 MCG Pantoprazol Pantoprazol No 1{table QD Pantoprazo e Sodium 40 e Sodium 40 t} le Sodium MG MG 40 MG Pantoprazol Pantoprazol No Pantoprazo e Sodium 40 e Sodium 40 le Sodium MG MG 40 MG traZODone traZODone No traZODone HCl HCl HCl Sertraline Sertraline No Sertraline HCl 50 MG HCl 50 MG HCl 50 MG Linzess Linzess No Linzess Miralax Miralax No Miralax Pravastatin Pravastatin No Pravastati Sodium 40 Sodium 40 n Sodium MG MG 40 MG Vitamin D3 Vitamin D3 No Vitamin D3 Zinc 50 MG Zinc 50 MG No 1{table QD Zinc 50 MG t} Carvedilol Carvedilol No 1{table BID Carvedilol 6.25 MG 6.25 MG t_with_ 6.25 MG food} Sertraline Sertraline No 1{table QD Sertraline HCl 50 MG HCl 50 MG t} HCl 50 MG Stool Stool No Stool Softener Softener Softener Magnesium Magnesium No 1{table QD Magnesium 250 MG 250 MG t_with_ 250 MG a_meal} Pravastatin Pravastatin No 1{table QD Pravastati Sodium 40 Sodium 40 t} n Sodium MG MG 40 MG Losartan Losartan No 1{table QD Losartan Potassium Potassium t} Potassium 50 MG 50 MG 50 MG Vitamin B12 Vitamin B12 No 1{table QD Vitamin 1000 MCG 1000 MCG t} B12 1000 MCG Pantoprazol Pantoprazol No 1{table QD Pantoprazo e Sodium 40 e Sodium 40 t} le Sodium MG MG 40 MG Pantoprazol Pantoprazol No Pantoprazo e Sodium 40 e Sodium 40 le Sodium MG MG 40 MG Pravastatin Pravastatin No 1{table QD Sodium 40 Sodium 40 t} MG MG Zinc 50 MG Zinc 50 MG No 1{table QD t} Vitamin B12 Vitamin B12 No 1{table QD 1000 MCG 1000 MCG t} Losartan Losartan No 1{table QD Potassium Potassium t} 50 MG 50 MG Stool Stool No Softener Softener Linzess Linzess No traZODone traZODone No HCl HCl Pantoprazol Pantoprazol No 1{table QD e Sodium 40 e Sodium 40 t} MG MG Vitamin D3 Vitamin D3 No Carvedilol Carvedilol No 1{table BID 6.25 MG 6.25 MG t_with_ food} Sertraline Sertraline No 1{table QD HCl 50 MG HCl 50 MG t} Miralax Miralax No Pravastatin Pravastatin No 1{table QD Pravastati Sodium 40 Sodium 40 t} n Sodium MG MG 40 MG Zinc 50 MG Zinc 50 MG No 1{table QD Zinc 50 MG t} Vitamin B12 Vitamin B12 No 1{table QD Vitamin 1000 MCG 1000 MCG t} B12 1000 MCG Losartan Losartan No 1{table QD Losartan Potassium Potassium t} Potassium 50 MG 50 MG 50 MG Stool Stool No Stool Softener Softener Softener Linzess Linzess No Linzess traZODone traZODone No traZODone HCl HCl HCl Pantoprazol Pantoprazol No 1{table QD Pantoprazo e Sodium 40 e Sodium 40 t} le Sodium MG MG 40 MG Vitamin D3 Vitamin D3 No Vitamin D3 Carvedilol Carvedilol No 1{table BID Carvedilol 6.25 MG 6.25 MG t_with_ 6.25 MG food} Sertraline Sertraline No 1{table QD Sertraline HCl 50 MG HCl 50 MG t} HCl 50 MG Miralax Miralax No Miralax Pravastatin Pravastatin No 1{table QD Pravastati Sodium 40 Sodium 40 t} n Sodium MG MG 40 MG Zinc 50 MG Zinc 50 MG No 1{table QD Zinc 50 MG t} Vitamin B12 Vitamin B12 No 1{table QD Vitamin 1000 MCG 1000 MCG t} B12 1000 MCG Losartan Losartan No 1{table QD Losartan Potassium Potassium t} Potassium 50 MG 50 MG 50 MG Stool Stool No Stool Softener Softener Softener Linzess Linzess No Linzess traZODone traZODone No traZODone HCl HCl HCl Pantoprazol Pantoprazol No 1{table QD Pantoprazo e Sodium 40 e Sodium 40 t} le Sodium MG MG 40 MG Vitamin D3 Vitamin D3 No Vitamin D3 Carvedilol Carvedilol No 1{table BID Carvedilol 6.25 MG 6.25 MG t_with_ 6.25 MG food} Sertraline Sertraline No 1{table QD Sertraline HCl 50 MG HCl 50 MG t} HCl 50 MG Miralax Miralax No Miralax Vital Signs Vital Name Observation Time Observation Value Comments Source height 2022-03-12 14:30:00 66.5 [in_i] Common [facility] weight 2022-03-12 14:30:00 156 [lb_av] [facility] temperature 2022-03-12 14:30:00 98.1 [degF] [facility] bmi 2022-03-12 14:30:00 24.8 kg/m2 [facility] oximetry 2022-03-12 14:30:00 94 % [facility] respiratory rate 2022-03-12 14:30:00 16 /min Comm on [facility] blood pressure 2022-03-12 14:30:00 132 mm[Hg] Common [facility] - systolic [facility] blood pressure 2022-03-12 14:30:00 67 mm[Hg] Common [facility] - diastolic [facility] height 2021-12-11 14:20:00 66.5 [in_i] Common [facility] weight 2021-12-11 14:20:00 154.4 [lb_av] [facility] temperature 2021-12-11 14:20:00 97.2 [degF] Common [facility] bmi 2021-12-11 14:20:00 24.54 kg/m2 Common [facility] oximetry 2021-12-11 14:20:00 97 % [facility] respiratory rate 2021-12-11 14:20:00 17 /min Comm on [facility] blood pressure 2021-12-11 14:20:00 125 mm[Hg] Common [facility] - systolic [facility] [facility] pressure 2021-12-11 14:20:00 75 mm[Hg] Common [facility] - diastolic [facility] height 2021-11-14 09:00:00 66.5 [in_i] [facility] weight 2021-11-14 09:00:00 156.6 [lb_av] [facility] temperature 2021-11-14 09:00:00 97.3 [degF] [facility] bmi 2021-11-14 09:00:00 24.89 kg/m2 [facility] oximetry 2021-11-14 09:00:00 97 % [facility] respiratory rate 2021-11-14 09:00:00 16 /min Comm on [facility] blood pressure 2021-11-14 09:00:00 138 mm[Hg] Common [facility] - systolic [facility] blood pressure 2021-11-14 09:00:00 74 mm[Hg] Common [facility] - diastolic [facility] height 2021-09-14 09:30:00 66.5 [in_i] Common [facility] weight 2021-09-14 09:30:00 154.4 [lb_av] [facility] temperature 2021-09-14 09:30:00 96.6 [degF] [facility] bmi 2021-09-14 09:30:00 24.54 kg/m2 Common [facility] oximetry 2021-09-14 09:30:00 97 % Common [facility] respiratory rate 2021-09-14 09:30:00 17 /min [facility] on [facility] blood pressure 2021-09-14 09:30:00 133 mm[Hg] Common [facility] - systolic [facility] blood pressure 2021-09-14 09:30:00 72 mm[Hg] Common [facility] - diastolic [facility] Body height 2021-07-09 16:24:00 167.6 cm [facility] Body weight 2021-07-09 16:24:00 71.668 kg [facility] BMI 2021-07-09 16:24:00 25.50 kg/m2 [facility] height 2021-06-13 11:10:00 66.5 [in_i] Common [facility] weight 2021-06-13 11:10:00 159.3 [lb_av] [facility] temperature 2021-06-13 11:10:00 97.3 [degF] Common [facility] bmi 2021-06-13 11:10:00 25.32 kg/m2 [facility] oximetry 2021-06-13 11:10:00 98 % Common [facility] respiratory rate 2021-06-13 11:10:00 17 /min Comm on [facility] blood pressure 2021-06-13 11:10:00 137 mm[Hg] Common [facility] - systolic [facility] blood pressure 2021-06-13 11:10:00 65 mm[Hg] Common [facility] - diastolic [facility] height 2021-06-13 10:40:00 66.5 [in_i] Common [facility] weight 2021-06-13 10:40:00 159.3 [lb_av] [facility] temperature 2021-06-13 10:40:00 97.3 [degF] [facility] bmi 2021-06-13 10:40:00 25.32 kg/m2 [facility] oximetry 2021-06-13 10:40:00 98 % [facility] respiratory rate 2021-06-13 10:40:00 17 /min [facility] on [facility] blood pressure 2021-06-13 10:40:00 137 mm[Hg] [facility] - systolic [facility] blood pressure 2021-06-13 10:40:00 65 mm[Hg] [facility] - diastolic [facility] height 2021-04-10 11:00:00 66.5 [in_i] [facility] weight 2021-04-10 11:00:00 162.8 [lb_av] [facility] temperature 2021-04-10 11:00:00 97.5 [degF] [facility] bmi 2021-04-10 11:00:00 25.88 kg/m2 [facility] oximetry 2021-04-10 11:00:00 97 % [facility] respiratory rate 2021-04-10 11:00:00 17 /min [facility] on [facility] blood pressure 2021-04-10 11:00:00 138 mm[Hg] [facility] systolic [facility] blood pressure 2021-04-10 11:00:00 62 mm[Hg] [facility] diastolic [facility] Body height 2022-04-10 16:00:00 167.6 cm [facility] Body weight 2022-04-10 16:00:00 69.854 kg [facility] BMI 2022-04-10 16:00:00 24.86 kg/m2 [facility] Procedures Procedure Date / Time Performing Clinician Source Performed XR KNEE 1 OR 2 VW RIGHT 2022-04-10 16:04:[address] [facility] [place] ARTHROCENTESIS 2022-04-10 15:30:00 [facility] ASPIR&/INJ MAJOR JT/BURSA W/O [place] ARTHROCENTESIS 2021-07-09 20:33:00 Agnieszka Ontiveros [facility] ASPIR&/INJ MAJOR JT/BURSA W/O US Plan of Care Planned Activity Planned Date Details Comments Source Future Scheduled 2022-11-10 COVID-19 VACCINE (#1) [facility] Test 20:07:05 [code = COVID-19 VACCINE (#1)] Future Scheduled 2022-11-10 65+ PNEUMOCOCCAL Methodi [facility] Test 20:07:05 VACCINE (1 - PCV) [code = 65+ PNEUMOCOCCAL VACCINE (1 - PCV)] Future Scheduled 2022-11-10 SHINGLES VACCINES ([address] [facility] Test 20:07:05 of 2) [code = SHINGLES VACCINES (1 of 2)] Future Scheduled 2022-11-10 ZZZ INFLUENZA VACCINE [facility] Test 20:07:05 [code = ZZZ INFLUENZA VACCINE] Encounters Start End Encounter Admission Attending Care Care Encounter Source Date/Time Date/Time Type Type Clinicians Facility Department ID 2022-10-24 Outpatient Butler, STLMLC [facility] [id number] Common 11:23:00 [facility] [address] [facility] 2022-06-26 Outpatient Butler, STLC [facility] [id number] Common 10:04:03 [facility] [address] [facility] 2022-03-08 Outpatient Butler, STLMLC [facility] [id number] Common 11:35:01 [facility] [address] [facility] 2021-07-29 Outpatient [facility] [id number] [place] 07:31:44 [id number] [facility] 2021-07-23 Outpatient RADWAN, [facility] [id number] [place] 09:36:57 AGNIESZKA [id number] [facility] 2021-07-09 Outpatient RADWAN, [facility] [id number] [place] 10:51:41 BRYANKACIE [id number] [facility] 2021-07-04 Outpatient [facility] [id number] [place] 14:16:05 [id number] [facility] 2021-07-02 Outpatient [facility] [id number] [place] 15:47:06 [id number] [facility] 2021-06-21 Outpatient RADWAN, [facility] [id number] [place] 09:55:24 [facility] 2021-06-11 Outpatient Butler, STZAFARLC STLMLC [id number] Common 13:22:02 [facility] 2021-05-02 Outpatient Butler, STLMLC STLMLC [id number] Common 14:30:36 [facility] 2019-10-05 Outpatient SYSTEM, [facility] [id number] 15:33:14 PROVIDER Reggie peterson 2022-04-10 2022-04-10 Office Brent Parmar 1.2.840.1 [id number] Methodi 09:30:00 11:27:[address] 3.430.2.7 Hospit a .3.785836 l .8 2022-04-10 2022-04-10 Travel 1.2.840.1 [id number] [id number] [facility] 00:00:00 00:00:[address] 3.430.2.7 0.2.7.3.698 Ho spita .3.067513 084.8 l .8 2022-04-10 2022-04-10 Outpatient BRENT PARMAR [facility] [id number] [place] 00:00:00 00:00:[address] 2022-04-10 2022-04-10 Outpatient BRENT PARMAR [facility] [id number] [place] 00:00:00 00:00:[address] 2022-03-13 2022-03-13 Travel 1.2.840.1 [id number] [id number] [facility] 00:00:00 00:00:[address] 3.430.2.7 0.2.7.3.698 Ho spita .3.869474 084.8 l .8 2022-03-13 2022-03-13 (TEL) [facility] [id number] [facility] 00:00:00 00:00:00 [facility] 2022-03-12 2022-03-12 OFFICE STLMLC STLMLC [id number] Co mmon 00:00:00 00:00:00 VISIT Spirit ESTAB PT - CHI LEVEL 4 [facility] 2022-02-22 2022-02-22 Travel 1.2.840.1 [id number] [id number] Methodi 00:00:00 00:00:[address] 3.430.2.7 0.2.7.3.698 Ho spita .3.613007 084.8 l .8 2022-02-14 2022-02-14 Travel 1.2.840.1 [id number] [id number] Methodi 00:00:00 00:00:[address] 3.430.2.7 0.2.7.3.698 Ho spita .3.038900 084.8 l .8 2022-02-11 2022-02-11 (TEL) STLMLC STLMLC [id number] [facility] 00:00:00 00:00:00 [facility] 2022-02-05 2022-02-05 (TEL) STLMLC STLMLC [id number] Co mmon 00:00:00 00:00:00 [facility] 2021-12-11 2021-12-11 OFFICE STLMLC STLMLC [id number] [facility] m[place] 00:00:00 00:00:00 VISIT Spirit ESTAB PT - CHI LEVEL 4 [facility] 2021-11-14 2021-11-14 OFFICE STLMLC STLMLC [id number] Co m[place] 00:00:00 00:00:00 VISIT EST Spir it PT LEVEL 3 - [facility] 2021-11-12 2021-11-12 (TEL) STLMLC STLMLC [id number] Co mmon 00:00:00 00:00:00 [facility] 2021-10-19 2021-10-19 Outpatient DMG DM [id number] 03:49:00 03:49:00 [id number] [facility] 2021-10-19 2021-10-19 Outpatient DM[facility] [id number] [facility] 00:00:00 00:00:00 [id number] [facility] 2021-10-19 2021-10-19 Outpatient DMG DMG [id number] [facility] 00:00:00 00:00:00 [id number] [facility] 2021-10-17 2021-10-17 (TEL) STLMLC STLMLC [id number] Co mmon 00:00:00 00:00:00 Spirit - CHI [facility] 2021-09-28 2021-09-28 Outpatient DM[facility] [id number] [facility] 12:00:00 12:00:00 [id number] [facility] 2021-09-14 2021-09-14 OFFICE STLMLC STLMLC [id number] Co mmon 00:00:00 00:00:00 VISIT [facility] ESTAB PT - CHI LEVEL 4 [facility] 2021-07-09 2021-07-09 Office SUSAN Ontiveros [facility] 1.2.840.114 [id number] [place] 11:00:00 12:07:49 [facility] 350.1.13.58 H [facility] 9.2.7.2.686 [id number] 2021-06-13 2021-06-13 OFFICE STLMLC STLMLC [id number] Co mmon 00:00:00 00:00:00 VISIT EST Spir it PT LEVEL 3 - CHI [facility] 2021-06-13 2021-06-13 SUB ANNUAL STLMLC STLMLC [id number] Common 00:00:00 00:00:00 MCR [facility] WELLNESS - CHI VISIT [facility] 2021-06-13 2021-06-13 (TEL) STLMLC STLMLC [id number] Co mmon 00:00:00 00:00:00 Spirit - [facility]I [facility] 2021-05-14 2021-05-14 (TEL) STLMLC STLMLC [id number] Co mmon 00:00:00 00:00:00 Spirit - [facility]I [facility] 2021-05-01 2021-05-01 (TEL) STLMLC STLC [id number] Co mmon 00:00:00 00:00:00 [facility] 2021-04-10 2021-04-10 OFFICE [facility] [id number] Co mmon 00:00:00 00:00:00 VISIT [facility] it PT LEVEL 3 - [facility] 2020-08-23 2020-08-24 Outpatient [facility] [id number] [address] [place] [address] 00:00:00 00:00:[address] Results This patient has no known results.
--- NOTE | 2022-11-30 12:27 | RAD REPORT ---
EXAM DESCRIPTION: CT - CTHCSPWOC - 11/30/2022 12:15 pm CLINICAL HISTORY: Trauma, head and neck injury. DIZZINESS COMPARISON: No comparisons TECHNIQUE: Axial 5 mm thick images of the head were obtained. Axial 2 mm thick images of the cervical spine were obtained with sagittal and coronal reconstruction images generated and reviewed. All CT scans are performed using dose optimization technique as appropriate and may include automated exposure control or mA/KV adjustment according to patient size. FINDINGS: CT HEAD WITHOUT CONTRAST: No acute hemorrhage, hydrocephalus or extra-axial collection is identified.No areas of brain edema or midline shift. Benign right scalp cyst. Intracranial calcifications. The paranasal sinuses and mastoids are clear.The calvarium is intact. CT CERVICAL SPINE WITHOUT CONTRAST: No fracture or subluxation.No prevertebral soft tissues swelling is identified. Mild cervical spondyl osis noted including neural foraminal narrowing bilaterally at C3-4, C4-5. IMPRESSION: No acute intracranial or cervical spine findings.
[2022-11-30 12:30] LABS: Specific Gravity 1.017 (1.005-1.030); Urine Bacteria None Seen /HPF (<20); Urine Bilirubin NEGATIVE (Negative); Urine Blood Negative (Negative); Urine Clarity Extremely Turbid (Clear); Urine Color Yellow (Yellow); Urine Glucose NEGATIVE (Negative); Urine Mucus Slight /HPF (None Seen); Urine Protein TRACE (Negative); Urine RBC <5 /HPF (None Seen); Urine Urobilinogen Normal (Normal); Urine pH 5.5 (5.0-7.0)
[2022-11-30 12:42] LABS: Absolute Lymphocytes (CBC) 0.9 K/uL (0.7-4.9); Hematocrit 41.3 % (36.0-45.0); Lymphocytes % 11.5 % (15.3-44.8); MCV 91.7 fL (80-100); MPV 9.5 fL (7.6-11.3); Platelets 169 thou/uL (152-406)
--- NOTE | 2022-11-30 12:55 | RAD REPORT ---
EXAM DESCRIPTION: RAD - Ankle Left 3 View - 11/30/2022 12:44 pm CLINICAL HISTORY: PAIN COMPARISON: No comparisons FINDINGS/IMPRESSION: No acute fracture. No malalignment. No significant focal degenerative changes.
--- NOTE | 2022-11-30 12:55 | RAD REPORT ---
EXAM DESCRIPTION: RAD - Ankle Right 3 View - 11/30/2022 12:45 pm CLINICAL HISTORY: PAIN COMPARISON: Ankle Left 3 View dated 11/30/2022 FINDINGS/IMPRESSION: No acute fracture. No malalignment. No significant focal degenerative changes.
--- NOTE | 2022-11-30 12:55 | RAD REPORT ---
EXAM DESCRIPTION: RAD - Knee Right 3 View - 11/30/2022 12:44 pm CLINICAL HISTORY: PAIN COMPARISON: No comparisons FINDINGS/IMPRESSION: No acute fracture. No malalignment. Mild medial compartment narrowing.
[2022-11-30 13:01] LABS: Albumin 3.7 g/dL (3.4-5.0); Bilirubin Total 0.6 mg/dL (0.2-1.0); Potassium 4.4 mEq/L (3.5-5.1); Protein, Total 6.9 g/dL (6.4-8.2); Troponin High Sensitivity 6.5 pg/mL (<58.9)
--- NOTE | 2022-11-30 13:07 | ER ---
Nurse's Notes [facility] Name: Arlen Veliz Age: 82 yrs Sex: Female : 1940 Arrival Date: 11/30/2022 Time: 11:23 Bed 3 Private MD: Vikram Butler Diagnosis: Unspecified injury of head, initial encounter;Syncope Near;Contusion of right knee;Sprain of other ligament of left ankle;Sprain of ankle;Bradycardia, unspecified;Unspecified kidney failure-renal insufficency Presentation: 11/30 11:48 Chief complaint: Patient states: Fall this morning - pt reports having a loose bowel ld1 movement in chair. Tried to get up out of chair to go get cleaned up. Pt reports becoming dizzy, passing out \T\ hitting back of head on ground. LOC occurred. C/O pain to sherry feel/ankles, right knee, back of head. Coronavirus screen: At this time, the client does not indicate any symptoms associated with coronavirus-19. Ebola Screen: No symptoms or risks identified at this time. Initial Sepsis Screen: Does the patient meet any 2 criteria? No. Patient's initial sepsis screen is negative. Does the patient have a suspected source of infection? No. Patient's initial sepsis screen is negative. Risk Assessment: Do you want to hurt yourself or someone else? Patient reports no desire to harm self or others. Onset of symptoms was November 30, 2022 at 11:50. 11:48 Method Of Arrival: Wheelchair ld1 11:48 Acuity: SUSANA 3 ld1 13:45 Care prior to arrival: None. Mechanism of Injury: Fall. Trauma event details: Injury ld1 occurred in the [facility]. Triage Assessment: 11:48 General: Appears in no apparent distress. uncomfortable, Behavior is calm, cooperative, ld1 appropriate for age. Pain: Complains of pain in right knee, dorsum of right foot, left lateral ankle and lateral aspect of left foot Pain does not radiate. Pain currently is 9 out of 10 on a pain scale. Quality of pain is described as throbbing, Pain began suddenly, Is continuous. EENT: No signs and/or symptoms were reported regarding the EENT system. Neuro: Level of Consciousness is awake, alert, obeys commands, Oriented to person, place, time, situation. Cardiovascular: Capillary refill < 3 seconds Patient's skin is warm and dry. Rhythm is sinus bradycardia. Respiratory: Airway is patent Respiratory effort is even, unlabored. GI: Abdomen is round non-distended. : No signs and/or symptoms were reported regarding the genitourinary system. Derm: No signs and/or symptoms reported regarding the dermatologic system. Musculoskeletal: No signs and/or symptoms reported regarding the musculoskeletal system. Historical: - Allergies: 11:40 PENICILLINS; ll1 - PMHx: 11:40 COLON CA; ll1 - Immunization history:: Adult Immunizations up to date. - Social history:: Smoking status: Patient denies any tobacco usage or history of. Patient/guardian denies using alcohol. - Immunization history: Last tetanus immunization: - up to date. Screenin:51 [facility] ED Fall Risk Assessment (Adult) History of falling in the last 3 months, ld1 including since admission No falls in past 3 months (0 pts). Abuse screen: Denies threats or abuse. Denies injuries from another. Nutritional screening: No deficits noted. Tuberculosis screening: No symptoms or risk factors identified. Primary Survey: 13:44 NO uncontrolled hemorrhage observed. Breathing/Chest: Spontaneous respiratory effort, ld1 equal unlabored respirations, breath sounds clear bilaterally, regular pattern, symmetrical chest rise and fall. Circulation: No external hemorrhage present. Regular and strong central pulse, skin warm/dry/normal color. Disability Client is alert. Exposure/Environment: All clothing and personal items were removed. Forensic evidence collection is not deemed to be indicated at this time. Items placed in patient belonging bag. Reassessment Breathing: Spontaneous respiratory effort, equal unlabored respirations, breath sounds clear bilaterally, regular pattern with symmetrical chest rise and fall. Circulation: No external hemorrhage noted. Regular and strong central pulse, skin warm/dry/normal color. Disability: Alert. Assessment: 11:51 Reassessment: See triage assessment. ld1 Vital Signs: 11:48 BP 152 / 59; Pulse 49; Resp 16; Temp 98.7(O); Pulse Ox 100% on R/A; Weight 79.83 kg; ld1 Height 5 ft. 3 in. ; Pain 7/10; 12:22 BP 130 / 55; Pulse 50; Resp 18; Pulse Ox 100% on R/A; ld1 13:27 BP 148 / 63; Pulse 53; Resp 18; Pulse Ox 95% on R/A; ld1 11:48 Body Mass Index 31.18 (79.83 kg, 160.02 cm) ld1 11:48 Pain Scale: Adult ld1 Karla Coma Score: 13:45 Eye Response: spontaneous(4). Motor Response: obeys commands(6). Verbal Response: ld1 oriented(5). Total: 15. Trauma Score (Adult): 13:44 Eye Response: spontaneous(1); Verbal Response: oriented(1); Motor Response: obeys ld1 commands(2); Systolic BP: > 89 mm Hg(4); Respiratory Rate: 10 to 29 per min(4); [place] Score: 15; Trauma Score: 12 ED Course: 11:26 Patient arrived in ED. mr 11:26 Vikram Butler DO is Private Physician. mr 11:31 Jose Bradley MD is Attending Physician. davi 11:40 Arm band placed on Patient placed in an exam room, on a stretcher. ll1 11:48 Coral Austin, ROMEO is Primary Nurse. ld1 11:50 Triage completed. ld1 11:51 Patient has correct armband on for positive identification. Placed in gown. Bed in low ld1 position. Call light in reach. Side rails up X2. welt cutter on. Pulse ox on. NIBP on. Door closed. Noise minimized. Warm blanket given. 11:51 No provider procedures requiring assistance completed. ld1 12:07 Urinalysis w/ reflexes Sent. ld1 12:17 CT Head C Spine In Process Unspecified. EDMS 12:46 Knee Right 3 View XRAY In Process Unspecified. EDMS 12:46 Ankle Left 3 View XRAY In Process Unspecified. EDMS 12:46 XRAY Ankle RIGHT 3 view In Process Unspecified. EDMS 13:06 Vikram Butler DO is Referral Physician. davi 13:06 Elías Huertas MD is Referral Physician. davi 13:44 IV discontinued, intact, bleeding controlled, No redness/swelling at site. ld1 13:45 Patient maintains SpO2 saturation greater than 95% on room air. ld1 Administered Medications: 12:49 Drug: NS 0.9% IV 1000 ml Route: IV; Rate: 1 bolus; Site: left antecubital; ld1 Medication: 11:51 VIS not applicable for this client. ld1 Outcome: 13:07 Discharge ordered by . davi 13:45 Discharged to home via wheelchair, with family. ld1 13:45 Condition: stable 13:45 Discharge instructions given to patient, family, Instructed on discharge instructions, follow up and referral plans. Demonstrated understanding of instructions, follow-up care. 13:45 Patient's length of stay was not longer than 2 hours. ld1 13:45 Patient left the ED. ld1 Signatures: Dispatcher [employer] EDOH Jose Bradley MD MD cha Rivera, Mary mr Lewis, Lynsay, RN RN ll1 Coral Austin RN RN ld1
--- NOTE | 2022-11-30 13:07 | EDPHYS ---
Physician Documentation [facility] Name: Arlen Veliz Age: 82 yrs Sex: Female : 1940 Arrival Date: 11/30/2022 Time: 11:23 Bed 3 Private MD: Luke [facility] ED Physician Jose Bradley HPI: 11/30 12:14 This 82 yrs old Female presents to ER via Wheelchair with complaints of Fall davi Injury, Head Injury With LOC-Adult. 12:14 Details of fall: The patient fell from an upright position, while standing. Onset: The davi symptoms/episode began/occurred just prior to arrival, this morning. Associated injuries: The patient sustained right leg and left leg, decreased range of motion, painful injury, swelling. Severity of symptoms: At their worst the symptoms were mild, moderate, in the emergency department the symptoms are unchanged. The patient has experienced similar episodes in the past, a few times. Historical: - Allergies: 11:40 PENICILLINS; ll1 - PMHx: 11:40 COLON CA; ll1 - Immunization history:: Adult Immunizations up to date. - Social history:: Smoking status: Patient denies any tobacco usage or history of. Patient/guardian denies using alcohol. - Immunization history: Last tetanus immunization: - up to date. ROS: 12:15 Constitutional: Negative for fever, chills, and weight loss, Eyes: Negative for injury, davi pain, redness, and discharge, ENT: Negative for injury, pain, and discharge, Neck: Negative for injury, pain, and swelling, Cardiovascular: Negative for chest pain, palpitations, and edema, Respiratory: Negative for shortness of breath, cough, wheezing, and pleuritic chest pain, Abdomen/GI: Negative for abdominal pain, nausea, vomiting, diarrhea, and constipation, Back: Negative for injury and pain, : Negative for injury, bleeding, discharge, and swelling, Skin: Negative for injury, rash, and discoloration, Psych: Negative for depression, anxiety, suicide ideation, homicidal ideation, and hallucinations, Allergy/Immunology: Negative for hives, rash, and allergies, Endocrine: Negative for neck swelling, polydipsia, polyuria, polyphagia, and marked weight changes, Hematologic/Lymphatic: Negative for swollen nodes, abnormal bleeding, and unusual bruising. 12:15 MS/extremity: Positive for injury or acute deformity, contusion, ecchymosis, pain, of the right leg and left lateral ankle. Exam: 12:15 Constitutional: This is a well developed, well nourished patient who is awake, alert, davi and in no acute distress. Head/Face: Normocephalic, atraumatic. Eyes: Pupils equal round and reactive to light, extra-ocular motions intact. Lids and lashes normal. Conjunctiva and sclera are non-icteric and not injected. Cornea within normal limits. Periorbital areas with no swelling, redness, or edema. ENT: Nares patent. No nasal discharge, no septal abnormalities noted. Tympanic membranes are normal and external auditory canals are clear. Oropharynx with no redness, swelling, or masses, exudates, or evidence of obstruction, uvula midline. Mucous membranes moist. Neck: Trachea midline, no thyromegaly or masses palpated, and no cervical lymphadenopathy. Supple, full range of motion without nuchal rigidity, or vertebral point tenderness. No Meningismus. Chest/axilla: Normal chest wall appearance and motion. Nontender with no deformity. No lesions are appreciated. Cardiovascular: Regular rate and rhythm with a normal S1 and S2. No gallops, murmurs, or rubs. Normal PMI, no JVD. No pulse deficits. Respiratory: Lungs have equal breath sounds bilaterally, clear to auscultation and percussion. No rales, rhonchi or wheezes noted. No increased work of breathing, no retractions or nasal flaring. Abdomen/GI: Soft, non-tender, with normal bowel sounds. No distension or tympany. No guarding or rebound. No evidence of tenderness throughout. Back: No spinal tenderness. No costovertebral tenderness. Full range of motion. Skin: Warm, dry with normal turgor. Normal color with no rashes, no lesions, and no evidence of cellulitis. Neuro: Awake and alert, GCS 15, oriented to person, place, time, and situation. Cranial nerves II-XII grossly intact. Motor strength 5/5 in all extremities. Sensory grossly intact. Cerebellar exam normal. Normal gait. Psych: Awake, alert, with orientation to person, place and time. Behavior, mood, and affect are within normal limits. 12:15 Musculoskeletal/extremity: Extremities: noted in the right knee: decreased ROM, pain. Vital Signs: 11:48 BP 152 / 59; Pulse 49; Resp 16; Temp 98.7(O); Pulse Ox 100% on R/A; Weight 79.83 kg; ld1 Height 5 ft. 3 in. ; Pain 7/10; 12:22 BP 130 / 55; Pulse 50; Resp 18; Pulse Ox 100% on R/A; ld1 13:27 BP 148 / 63; Pulse 53; Resp 18; Pulse Ox 95% on R/A; ld1 11:48 Body Mass Index 31.18 (79.83 kg, 160.02 cm) ld1 11:48 Pain Scale: Adult ld1 Woodward Coma Score: 13:45 Eye Response: spontaneous(4). Motor Response: obeys commands(6). Verbal Response: ld1 oriented(5). Total: 15. Trauma Score (Adult): 13:44 Eye Response: spontaneous(1); Verbal Response: oriented(1); Motor Response: obeys ld1 commands(2); Systolic BP: > 89 mm Hg(4); Respiratory Rate: 10 to 29 per min(4); Woodward Score: 15; Trauma Score: 12 MDM: 11:31 Patient medically screened. [facility] 12:15 Differential diagnosis: abrasion, closed head injury, contusion, fracture, sprain, davi strain, cardiac arrhythmia, cerebrovascular accident, drug effect, emotional response, transient ischemic attack, vasovagal episode. Data reviewed: vital signs, nurses notes, lab test result(s), EKG, radiologic studies, plain films. Consideration of Admission/Observation Escalation of care including admission/observation considered. I considered the following discharge prescriptions or medication management in the emergency department Medications were administered in the Emergency Department. See MAR. Independent interpretation of the following test(s) in the Emergency Department EKG: See my EKG interpretation above. Test considered but Not performed: Ultrasound no 2 d echo. Historians other than the Patient: Family Member: son. Care significantly affected by the following chronic conditions: colon cancer, had colonoscope yesterday. Counseling: I had a detailed discussion with the patient and/or guardian regarding the historical points, exam findings, and any diagnostic results supporting the discharge/admit diagnosis, lab results, radiology results. 11/30 11:57 Order name: CBC with Diff; Complete Time: 13:04 [facility] 11/30 11:57 Order name: Comprehensive Metabolic Panel; Complete Time: 13:04 davi 11/30 11:57 Order name: Troponin High Sensitivity; Complete Time: 13:04 [facility] 11/30 11:57 Order name: Urinalysis w/ reflexes; Complete Time: 13:04 davi 11/30 11:57 Order name: CT Head C Spine; Complete Time: 13:04 davi 11/30 11:57 Order name: Knee Right 3 View XRAY; Complete Time: 13:04 [facility] 11/30 11:57 Order name: Ankle Left 3 View XRAY; Complete Time: 13:04 [facility] 11/30 12:36 Order name: XRAY Ankle RIGHT 3 view; Complete Time: 13:04 ld1 11/30 11:57 Order name: EKG; Complete Time: 11:57 [facility] 11/30 11:57 Order name: EKG - Nurse/Tech; Complete Time: 11:59 [facility] 11/30 13:06 Order name: PO challenge; Complete Time: 13:25 [facility] 11/30 13:06 Order name: Thomas wrap-joint: ankle; Complete Time: 13:37 davi Administered Medications: 12:49 Drug: NS 0.9% IV 1000 ml Route: IV; Rate: 1 bolus; Site: left antecubital; ld1 Disposition Summary: 11/30/22 13:07 Discharge Ordered Location: Home davi Problem: new davi Symptoms: have improved davi Condition: Stable davi Diagnosis - Unspecified injury of head, initial encounter davi - Syncope Near davi - Contusion of right knee davi - Sprain of other ligament of left ankle davi - Sprain of ankle davi - Bradycardia, unspecified davi - Unspecified kidney failure - renal insufficency davi Followup: davi - With: - When: 2 - 3 days - Reason: Recheck today's complaints, Continuance of care, Re-evaluation by your physician Followup: davi - With: - When: 2 - 3 days - Reason: Recheck today's complaints, Re-evaluation by your physician Discharge Instructions: - Discharge Summary Sheet davi - Ankle Sprain davi - Bradycardia, Adult davi - Dehydration, Adult davi - Near-Syncope davi - Orthostatic Hypotension davi - Syncope davi - Weakness davi - Ankle Sprain, [id number] davi - Near-Syncope, [id number] davi - Acute Kidney Injury, Adult davi - Weakness, [id number] davi - Dehydration, Adult, [id number] davi Forms: - Medication Reconciliation Form davi - Thank You Letter davi - Antibiotic Education davi - Prescription Opioid Use davi - Patient Portal Instructions davi - Leadership Thank You Letter davi Signatures: Dispatcher [employer] Jose Chacon MD MD cha Lewis, Lynsay RN RN ll1 Coral Austin RN RN ld1
[2022-11-30 13:49] VITALS: TEMP 98.7
[2022-11-30 13:52] VITALS: BP 148/63; O2SAT 95
--- NOTE | 2022-12-01 15:07 | EKG ---
Test Date: 2022-11-30 Test Time: 11:57:40 Mimeograph Operator: Isai GARNER MEASUREMENT RESULTS: Intervals: Rate: 49 TX: 174 QRSD: 78 QT: 454 QTc: 410 [place]: P: 71 TX: 174 QRS: 100 T: 56 INTERPRETIVE STATEMENTS: Sinus bradycardia Rightward axis Borderline ECG Compared to ECG 03/13/2021 11:42:24 Right-axis deviation now present Atrial premature complex(es) no longer present Electronically Signed On 12-01-22 15:05:11 CDT by Jcaob Stauffer
== END 2022-11-30 13:45 | disposition home or self-care (01) ==
LOC: ER 11:23
DX: S09.90XA Unspecified injury of head, initial encounter (principal); R55 Syncope and collapse; S80.01XA Contusion of right knee, initial encounter; S93.492A Sprain of other ligament of left ankle, initial encounter; R00.1 Bradycardia, unspecified; N19 Unspecified kidney failure; Z88.0 Allergy status to penicillin; Z85.038 Personal history of other malignant neoplasm of large intestine
CPT/HCPCS: 36415; 70450; 72125; 80053; 81001; 84484; 85025; 93005; 99285